=== PATIENT | female | born 1950 | race American Indian/Alaskan Native ===

== ENCOUNTER 2017-12-21 01:18 | Inpatient (IN) | payer MEDICARE ==
[2017-12-21] MEDS ORDERED: DUONEB *Not for PRN Use IH ONE ×2 (02:48→03:06)
[2017-12-21 03:53] LABS: Basophils % (Auto) 0.5 % (0.0-1.8); Eosinophils # (Auto) 0.4 K/mm3 (0.0-0.4); Eosinophils % (Auto) 4.8 % (0.0-4.3); Hematocrit 42.2 % (30.3-42.9); Hemoglobin 13.8 gm/dl (10.1-14.3); Lymphocytes % (Auto) 32.8 % (13.4-35.0); Mean Corpuscular HGB Conc 33 % (30-34); Mean Corpuscular Hemoglobin 31 pg (28-32); Mean Corpuscular Volume 94 fl (79-97); Monocytes # (Auto) 0.6 K/mm3 (0.0-0.8); Monocytes % (Auto) 6.1 % (0.0-7.3); Platelet Count 260 K/mm3 (140-440); Red Blood Count 4.51 M/mm3 (3.65-5.03); Red Cell Distribution Width 15.1 % (13.2-15.2)
--- NOTE | 2017-12-21 04:05 | XRay Report ---
FINAL REPORT EXAM: XR CHEST ROUTINE 2V HISTORY: Shortness of breath TECHNIQUE: PA and lateral chest radiographs PRIORS: None. FINDINGS: No mediastinal shift. Cardiac silhouette is not enlarged. Hyperaeration of the lungs. Mediastinal and pulmonary calcifications. No pneumothorax, effusion, or focal pulmonary opacity. No acute skeletal finding. Old left-sided rib fracture deformities. IMPRESSION: Suggested sequela of COPD and old granulomatous disease without superimposed focal airspace disease or effusion.
[2017-12-21 04:14] LABS: BUN/Creatinine Ratio 16; Blood Urea Nitrogen 11 mg/dL (7-17); Calcium 9.1 mg/dL (8.4-10.2); Hemolysis Index 37
[2017-12-21] MEDS ORDERED: PROVENTIL IH ONE (06:45)
[2017-12-21] MEDS ORDERED: DELTASONE PO ONE (06:45)
[2017-12-21] MEDS ORDERED: ATROVENT IH ONE (06:45)
--- NOTE | 2017-12-21 06:46 | Emergency Department Report ---
ED General Adult HPI - General Chief complaint: Dyspnea/Respdistress Stated complaint: SOB Time Seen by Provider: 12/21/17 06:39 Source: patient, EMS (ems notes not available at time of chart dictation), RN notes reviewed Mode of arrival: Stretcher Limitations: Physical Limitation - History of Present Illness Initial comments: This is a 67-year-old female who is not known to this provider previously. Has a past medical history of COPD, not home oxygen dependent, and her primary care doctor is with the [facility]. She presents to the ER with 1 week of cough , wheezing, mucus production, shortness of breath. She denies DVT, pulmonary embolus risk factors. Her symptoms are constant, they were sort of physical exertion, laying flat, and they decrease with rest. -: Gradual Severity scale (0 -10): 0 Consistency: constant Improves with: rest Worsens with: medication Associated Symptoms: cough, loss of appetite, malaise, shortness of breath, weakness. denies: confusion, chest pain, diaphoresis, fever/chills, headaches, nausea/vomiting, rash, seizure, syncope - Related Data Previous Rx's Medication Instructions Recorded Last Taken Type Cyclobenzaprine [Flexeril] 10 mg PO TID PRN #15 tablet 02/18/13 Unknown Rx HYDROcodone/APAP 5-325 [[place] 1 each PO Q6HR PRN #20 tablet 02/18/13 Unknown Rx 5/325 mg] HYDROcodone/APAP 5-325 [[place] 1 each PO Q6HR PRN #20 tablet 11/07/14 Unknown Rx 5/325] Methocarbamol [Robaxin] 750 mg PO Q8H PRN #21 tablet 11/07/14 Unknown Rx Allergies Allergy/AdvReac Type Severity Reaction Status Date / Time No Known Allergies Allergy Unverified 02/18/13 08:47 ED Review of Systems ROS: Stated complaint: SOB Other details as noted in HPI Comment: All other systems reviewed and negative ED Past Medical Hx - Past Medical History Hx CVA: No Hx Diabetes: Yes (pre diabetes) Hx COPD: Yes Additional medical history: Chronic neck pain - Surgical History Additional Surgical History: hysterectomy, Bautista. shoulder surgeries, Left hand surgery - Social History Smoking Status: Current Every Day Smoker Substance Use Type: None - Medications Home Medications: Home Medications Medication Instructions Recorded Confirmed Last Taken Type Cyclobenzaprine [Flexeril] 10 mg PO TID PRN #15 tablet 02/18/13 Unknown Rx HYDROcodone/APAP 5-325 [[place] 1 each PO Q6HR PRN #20 tablet 02/18/13 Unknown Rx 5/325 mg] HYDROcodone/APAP 5-325 [[place] 1 each PO Q6HR PRN #20 tablet 11/07/14 Unknown Rx 5/325] Methocarbamol [Robaxin] 750 mg PO Q8H PRN #21 tablet 11/07/14 Unknown Rx ED Physical Exam - General Limitations: Physical Limitation General appearance: alert, in no apparent distress - Head Head exam: Present: atraumatic, normocephalic - Eye Eye exam: Present: normal appearance. Absent: nystagmus - ENT ENT exam: Present: normal orophraynx, mucous membranes moist - Neck Neck exam: Present: normal inspection, full ROM - Respiratory Respiratory exam: Present: respiratory distress, wheezes, rhonchi - Cardiovascular Cardiovascular Exam: Present: regular rate, normal rhythm, normal heart sounds. Absent: bradycardia, tachycardia, irregular rhythm, systolic murmur, diastolic murmur, rubs, gallop - GI/Abdominal GI/Abdominal exam: Present: soft, normal bowel sounds. Absent: distended, tenderness, guarding, rebound, rigid, pulsatile mass - Extremities Exam Extremities exam: Present: normal inspection, full ROM, normal capillary refill , other (2+ pulses noted in the bilateral upper, lower extremities. Compartments soft. No long bony tenderness. The pelvis is stable.). Absent: pedal edema, joint swelling, calf tenderness - Back Exam Back exam: Present: normal inspection, full ROM. Absent: tenderness, CVA tenderness (R), CVA tenderness (L), paraspinal tenderness, vertebral tenderness - Neurological Exam Neurological exam: Present: alert, CN II-XII intact, other (Extraocular movements intact. Tongue midline. No facial droop. Facial sensation intact to light touch in the V1, V2, V3 distribution bilaterally. 5 and 5 strength in 4 extremities.. Sensation is intact to light touch in 4 extremities.). Absent : motor sensory deficit - Psychiatric Psychiatric exam: Present: anxious - Skin Skin exam: Present: warm, dry, intact, normal color. Absent: rash ED Course Vital Signs 12/21/17 12/21/17 12/21/17 01:18 02:58 06:26 Temperature 98.0 F Pulse Rate 92 H Respiratory 18 Rate Blood Pressure 115/64 Blood Pressure [Right] O2 Sat by Pulse 95 96 97 Oximetry 12/21/17 12/21/17 12/21/17 06:30 06:46 07:00 Temperature 98.4 F Pulse Rate 102 H 98 H 52 L Respiratory 29 H 21 22 Rate Blood Pressure 125/74 127/64 Blood Pressure 125/74 [Right] O2 Sat by Pulse 97 98 95 Oximetry ED Medical Decision Making - Lab Data Result diagrams: 12/21/17 03:17 12/21/17 03:17 Vital Signs 12/21/17 12/21/17 12/21/17 01:18 02:58 06:26 Temperature 98.0 F Pulse Rate 92 H Respiratory 18 Rate Blood Pressure 115/64 Blood Pressure [Right] O2 Sat by Pulse 95 96 97 Oximetry 12/21/17 12/21/17 12/21/17 06:30 06:46 07:00 Temperature 98.4 F Pulse Rate 102 H 98 H 52 L Respiratory 29 H 21 22 Rate Blood Pressure 125/74 127/64 Blood Pressure 125/74 [Right] O2 Sat by Pulse 97 98 95 Oximetry Lab Results 12/21/17 12/21/17 12/21/17 Range/Units 03:17 03:17 07:00 WBC 9.1 (4.5-11.0) K/mm3 RBC 4.51 (3.65-5.03) M/mm3 Hgb 13.8 (10.1-14.3) gm/dl Hct 42.2 (30.3-42.9) % MCV 94 (79-97) fl MCH 31 (28-32) pg MCHC 33 (30-34) % RDW 15.1 (13.2-15.2) % Plt Count 260 (140-440) K/mm3 Lymph % (Auto) 32.8 (13.4-35.0) % [place] % (Auto) 6.1 (0.0-7.3) % Eos % (Auto) 4.8 H (0.0-4.3) % Baso % (Auto) 0.5 (0.0-1.8) % Lymph # 3.0 (1.2-5.4) K/mm3 [place] # 0.6 (0.0-0.8) K/mm3 Eos # 0.4 (0.0-0.4) K/mm3 Baso # 0.0 (0.0-0.1) K/mm3 Seg Neutrophils % 55.8 (40.0-70.0) % Seg Neutrophils # 5.1 (1.8-7.7) K/mm3 Sodium 139 (137-145) mmol/L Potassium 4.2 (3.6-5.0) mmol/L Chloride 102.9 (98-107) mmol/L Carbon Dioxide 22 (22-30) mmol/L Anion Gap 18 mmol/L BUN 11 (7-17) mg/dL Creatinine 0.7 (0.7-1.2) mg/dL Estimated GFR > 60 ml/min BUN/Creatinine Ratio 16 % Glucose 97 (65-100) mg/dL Calcium 9.1 (8.4-10.2) mg/dL Troponin T < 0.010 < 0.010 (0.00-0.029) ng/mL - EKG Data When compared to previous EKG there are: no significant change 12/21/17 09:25 Motion artifact, 82 bpm, normal axis, QTC prolonged, abnormal EKG, not a STEMI. Appears unchanged from prior from 03/23/2009. - Radiology Data Radiology results: report reviewed, image reviewed X-ray of the chest shows chronic emphysematous changes. No acute disease is noted. - Medical Decision Making Differential diagnosis, including but not limited to: COPD, bronchitis, pneumonia Assessment and plan: 67-year-old female with no DVT or pulmonary embolus risk factors, with probable COPD exacerbation. She received multiple nebulizer therapy, but in spite of adequate and appropriate medical therapy, remained symptomatically, and desaturated with physical exertion. Contacted the [place] network and discussed the case with Dr. Florez, who authorized admission to this hospital for presumed COPD exacerbation. The case was then presented to the Hospital physician, Dr. Whipple, who accepted the patient to the medical service. Critical care attestation.: If time is entered above; I have spent that time in minutes in the direct care of this critically ill patient, excluding procedure time. ED Disposition Clinical Impression: COPD with exacerbation Disposition: OP ADMIT IP TO THIS HOSP Is pt being admited?: Yes Condition: Good Instructions: Chronic Obstructive Pulmonary Disease (ED) Referrals: JONATHAN METCALF MD [Other] - 3-5 Days
[2017-12-21] MEDS ORDERED: MAGNESIUM SULFATE 2GM/50ML 2 GM/50 ML BAG IV ONE (07:31)
[2017-12-21] MEDS ORDERED: MAGNESIUM SULFATE 2 GM in NACL 0.9% 50 ML IV ONE (08:00)
[2017-12-21] MEDS ORDERED: LEVAQUIN PO ONE (08:23)
[2017-12-21] MEDS ORDERED: PROVENTIL IH PRN (09:02)
[2017-12-21] MEDS ORDERED: ZOFRAN IV PRN (09:02)
[2017-12-21] MEDS ORDERED: TYLENOL PO PRN (09:02)
--- NOTE | 2017-12-21 09:09 | History and Physical Report ---
History of Present Illness Date of examination: 12/21/17 Chief complaint: Shortness of breath History of present illness: 67 year old female with past medical history significant for COPD, hyperlipidemia presented to the emergency department complaining of shortness of breath of one-week duration, but worsened yesterday and couldn't breath. Patient is also complaining cough which is productive of yellowish sputum for the last one and half week, associated with discharge from the right nostril. Patient denied fever, chills, palpitation. Patient took albuterol inhaler and nebulizer without improvement. Patient said she came to the hospital and was given antibiotics without improvement. Patient is active smoker. REVIEW OF SYSTEMS: GENERAL: no weight change, no fatigue, no fever HEAD: no head ache EYES: no blurry vision, no acute visual loss EARS: no hearing loss, no discharge, no earache NOSE: no stuffiness, no sneezing, no discharge MOUTH, THROAT AND NECK: no bleeding gums, no sore throat, no swollen neck CARDIAC: no palpitations, no dyspnea on exertion, no orthopnea, no PND, no edema , no chest pain RESPIRATORY: As stated in the HPI. GI: no decreased appetite, no nausea, no vomiting, no dysphagia, no diarrhea, no constipation, no abdominal pain URINARY: no change in frequency, no urgency, no polyuria, no hematuria, no incontinence MUSCULOSKELETAL: no muscle weakness, no pain, no joint stiffness NEUROLOGIC: no loss of sensation/numbness, no tingling, no tremors, no weakness/ paralysis HEMATOLOGIC: no anemia, no easy bruising SKIN: no rashes ENDOCRINE: no heat/cold intolerance, no polyuria, no polydipsia, no thyroid problems, no diabetes PSYCHIATRIC: no anxiety, no depression, no suicidal ideations Past History Past Medical History: COPD, hyperlipidemia Past Surgical History: No surgical history Social history: smoking (1/2 PPD), full code. denies: alcohol abuse, prescription drug abuse, IV drug use Family history: no significant family history Medications and Allergies Allergies Allergy/AdvReac Type Severity Reaction Status Date / Time No Known Allergies Allergy Unverified 02/18/13 08:47 Home Medications Medication Instructions Recorded Confirmed Last Taken Type Cyclobenzaprine [Flexeril] 10 mg PO TID PRN #15 tablet 02/18/13 12/21/17 Unknown Rx HYDROcodone/APAP 5-325 [[place] 1 each PO Q6HR PRN #20 tablet 02/18/13 12/21/17 Unknown Rx 5/325 mg] HYDROcodone/APAP 5-325 [[place] 1 each PO Q6HR PRN #20 tablet 11/07/14 12/21/17 Unknown Rx 5/325] Methocarbamol [Robaxin] 750 mg PO Q8H PRN #21 tablet 11/07/14 12/21/17 Unknown Rx Remeron 15 mg PO HS 12/21/17 12/21/17 12/19/17 21:00 History Exam - Physical Exam Narrative exam: patient is in cardiopulmonary distress. Use of accessory muscles for breathing. The patient appeared well nourished and normally developed. Vital signs as documented. Head exam is unremarkable. No scleral icterus . Neck is without jugular venous distension, thyromegaly, or carotid bruits. Lungs wheezing all over the chest. Cardiac exam reveals regular rate and Rhythm. First and second heart sounds normal. No murmurs, rubs or gallops. Abdominal exam reveals normal bowel sounds, no masses, no organomegaly and no aortic enlargement. Extremities are nonedematous and both femoral and pedal pulses are normal. 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 No focal weakness. - Constitutional Vitals: Temp Pulse Resp BP Pulse Ox 98.4 F 52 L 22 127/64 95 12/21/17 06:30 12/21/17 07:00 12/21/17 07:00 12/21/17 07:00 12/21/17 07:00 Results - Labs CBC & Chem 7: 12/21/17 03:17 12/21/17 03:17 Labs: Laboratory Last Values WBC 9.1 K/mm3 (4.5-11.0) 12/21/17 03:17 RBC 4.51 M/mm3 (3.65-5.03) 12/21/17 03:17 Hgb 13.8 gm/dl (10.1-14.3) 12/21/17 03:17 Hct 42.2 % (30.3-42.9) 12/21/17 03:17 MCV 94 fl (79-97) 12/21/17 03:17 MCH 31 pg (28-32) 12/21/17 03:17 MCHC 33 % (30-34) 12/21/17 03:17 RDW 15.1 % (13.2-15.2) 12/21/17 03:17 Plt Count 260 K/mm3 (140-440) 12/21/17 03:17 Lymph % (Auto) 32.8 % (13.4-35.0) 12/21/17 03:17 [place] % (Auto) 6.1 % (0.0-7.3) 12/21/17 03:17 Eos % (Auto) 4.8 % (0.0-4.3) H 12/21/17 03:17 Baso % (Auto) 0.5 % (0.0-1.8) 12/21/17 03:17 Lymph # 3.0 K/mm3 (1.2-5.4) 12/21/17 03:17 [place] # 0.6 K/mm3 (0.0-0.8) 12/21/17 03:17 Eos # 0.4 K/mm3 (0.0-0.4) 12/21/17 03:17 Baso # 0.0 K/mm3 (0.0-0.1) 12/21/17 03:17 Seg Neutrophils % 55.8 % (40.0-70.0) 12/21/17 03:17 Seg Neutrophils # 5.1 K/mm3 (1.8-7.7) 12/21/17 03:17 Sodium 139 mmol/L (137-145) 12/21/17 03:17 Potassium 4.2 mmol/L (3.6-5.0) 12/21/17 03:17 Chloride 102.9 mmol/L (98-107) 12/21/17 03:17 Carbon Dioxide 22 mmol/L (22-30) 12/21/17 03:17 Anion Gap 18 mmol/L 12/21/17 03:17 BUN 11 mg/dL (7-17) 12/21/17 03:17 Creatinine 0.7 mg/dL (0.7-1.2) 12/21/17 03:17 Estimated GFR > 60 ml/min 12/21/17 03:17 BUN/Creatinine Ratio 16 % 12/21/17 03:17 Glucose 97 mg/dL (65-100) 12/21/17 03:17 Calcium 9.1 mg/dL (8.4-10.2) 12/21/17 03:17 Troponin T < 0.010 ng/mL (0.00-0.029) 12/21/17 07:00 - Imaging and Cardiology Chest x-ray: report reviewed Assessment and Plan Assessment and plan: Acute hypoxic respiratory failure - There is no documentation of hypoxia in the chart, but patient was saturating 91 while on 3 liters of oxygen - Patient was using her accessory medicines for breathing COPD exacerbation - Oxygen support, Solu-Medrol, IV antibiotic, nebulizer, breathing treatment Hyperlipidemia - We'll check lipid panel and treat accordingly Tobacco dependence - Patient was counseled about cessation of tobacco use DVT prophylaxis - Heparin Disposition - Admit to [facility] floor Advance Directives: Yes VTE prophylaxis?: Chemical Plan of care discussed with patient/family: Yes
[2017-12-21] MEDS: GUAIFENESIN DM SYRUP PO SCH ×4 (09:39→21:04)
[2017-12-21] MEDS ORDERED: LEVAQUIN PO SCH (11:00)
[2017-12-21] MEDS ORDERED: HABITROL TD ONE (11:00)
[2017-12-21] MEDS: PEPCID PO SCH ×2 (11:41→22:18)
[2017-12-21] MEDS: SODIUM CHLORIDE FLUSH SYRINGE 10 ML IV SCH ×2 (11:41→22:19)
[2017-12-21] MEDS: COLACE PO SCH ×2 (11:41→22:18)
[2017-12-21] MEDS ORDERED: LEVAQUIN PO NR (12:00)
[2017-12-21] MEDS: HEPARIN SUB-Q SCH ×2 (14:03→22:18)
[2017-12-21] MEDS: SODIUM CHLORIDE FLUSH SYRINGE 10 ML IV PRN (14:03)
[2017-12-21] MEDS ORDERED: PERCOCET 5/325 PO PRN (14:49)
[2017-12-21] MEDS: DUONEB *Not for PRN Use IH SCH ×3 (15:32→19:06)
[2017-12-21] MEDS: PULMICORT IH SCH ×2 (15:32→19:06)
[2017-12-22] MEDS: GUAIFENESIN DM SYRUP PO SCH ×6 (01:05→21:45)
[2017-12-22 05:40] LABS: Basophils % (Auto) 0.1 % (0.0-1.8); Hematocrit 40.4 % (30.3-42.9); Hemoglobin 13.2 gm/dl (10.1-14.3); Lymphocytes # (Auto) 1.5 K/mm3 (1.2-5.4); Lymphocytes % (Auto) 10.4 % (13.4-35.0); Mean Corpuscular HGB Conc 33 % (30-34); Mean Corpuscular Hemoglobin 30 pg (28-32); Mean Corpuscular Volume 91 fl (79-97); Monocytes # (Auto) 0.4 K/mm3 (0.0-0.8); Monocytes % (Auto) 2.6 % (0.0-7.3); Platelet Count 277 K/mm3 (140-440); Red Blood Count 4.42 M/mm3 (3.65-5.03); Red Cell Distribution Width 14.7 % (13.2-15.2)
[2017-12-22 05:57] LABS: BUN/Creatinine Ratio 15; Blood Urea Nitrogen 9 mg/dL (7-17); Hemolysis Index 7
[2017-12-22] MEDS: HEPARIN SUB-Q SCH ×3 (06:04→22:07)
[2017-12-22] MEDS: DUONEB *Not for PRN Use IH SCH ×4 (06:56→20:00)
[2017-12-22] MEDS: PULMICORT IH SCH ×2 (09:45→20:00)
[2017-12-22] MEDS ORDERED: XANAX PO ONE (10:17)
[2017-12-22] MEDS: PEPCID PO SCH ×2 (10:23→22:07)
[2017-12-22] MEDS: COLACE PO SCH ×2 (10:24→22:07)
[2017-12-22] MEDS: SODIUM CHLORIDE FLUSH SYRINGE 10 ML IV SCH ×2 (10:24→22:27)
--- NOTE | 2017-12-22 12:39 | Progress Note ---
Assessment and Plan Assessment and plan: Acute hypoxic respiratory failure - There is no documentation of hypoxia in the chart, but patient was saturating 91 while on 3 liters of oxygen at presentation - Patient was using her accessory medicines for breathing - Now resolving COPD exacerbation - Oxygen support, Solu-Medrol, IV antibiotic, nebulizer, breathing treatment Hyperlipidemia - We'll check lipid panel and treat accordingly Tobacco dependence - Patient was counseled about cessation of tobacco use DVT prophylaxis - Heparin [facility] History Interval history: Patient was seen and evaluated this morning, patient is breathing better. Hospitalist Physical - Physical exam Narrative exam: patient is not in cardiopulmonary distress. The patient appeared well nourished and normally developed. Vital signs as documented. Head exam is unremarkable. No scleral icterus . Neck is without jugular venous distension, thyromegaly, or carotid bruits. Lungs scattered wheezing. Cardiac exam reveals regular rate and Rhythm. First and second heart sounds normal. No murmurs, rubs or gallops. Abdominal exam reveals normal bowel sounds, no masses, no organomegaly and no aortic enlargement. Extremities are nonedematous and both femoral and pedal pulses are normal. 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 No focal weakness. - Constitutional Vitals: Temp Pulse Resp BP Pulse Ox 98.9 F 83 18 127/43 96 12/22/17 07:39 12/22/17 10:04 12/22/17 10:04 12/22/17 07:39 12/22/17 09:43 Results - Labs CBC & Chem 7: 12/22/17 05:00 12/22/17 05:00 Labs: Laboratory Last Values WBC 14.9 K/mm3 (4.5-11.0) H 12/22/17 05:00 RBC 4.42 M/mm3 (3.65-5.03) 12/22/17 05:00 Hgb 13.2 gm/dl (10.1-14.3) 12/22/17 05:00 Hct 40.4 % (30.3-42.9) 12/22/17 05:00 MCV 91 fl (79-97) 12/22/17 05:00 MCH 30 pg (28-32) 12/22/17 05:00 MCHC 33 % (30-34) 12/22/17 05:00 RDW 14.7 % (13.2-15.2) 12/22/17 05:00 Plt Count 277 K/mm3 (140-440) 12/22/17 05:00 Lymph % (Auto) 10.4 % (13.4-35.0) L 12/22/17 05:00 [place] % (Auto) 2.6 % (0.0-7.3) 12/22/17 05:00 Eos % (Auto) 0.0 % (0.0-4.3) 12/22/17 05:00 Baso % (Auto) 0.1 % (0.0-1.8) 12/22/17 05:00 Lymph # 1.5 K/mm3 (1.2-5.4) 12/22/17 05:00 [place] # 0.4 K/mm3 (0.0-0.8) 12/22/17 05:00 Eos # 0.0 K/mm3 (0.0-0.4) 12/22/17 05:00 Baso # 0.0 K/mm3 (0.0-0.1) 12/22/17 05:00 Seg Neutrophils % 86.9 % (40.0-70.0) H 12/22/17 05:00 Seg Neutrophils # 12.9 K/mm3 (1.8-7.7) H 12/22/17 05:00 Sodium 140 mmol/L (137-145) 12/22/17 05:00 Potassium 4.7 mmol/L (3.6-5.0) 12/22/17 05:00 Chloride 104.6 mmol/L (98-107) 12/22/17 05:00 Carbon Dioxide 23 mmol/L (22-30) 12/22/17 05:00 Anion Gap 17 mmol/L 12/22/17 05:00 BUN 9 mg/dL (7-17) 12/22/17 05:00 Creatinine 0.6 mg/dL (0.7-1.2) L 12/22/17 05:00 Estimated GFR > 60 ml/min 12/22/17 05:00 BUN/Creatinine Ratio 15 % 12/22/17 05:00 Glucose 137 mg/dL (65-100) H 12/22/17 05:00 Calcium 9.0 mg/dL (8.4-10.2) 12/22/17 05:00 Troponin T < 0.010 ng/mL (0.00-0.029) 12/21/17 07:00
[2017-12-22 14:21] LABS: Chol/HDL Ratio 3.35 %
[2017-12-22] MEDS ORDERED: XANAX PO PRN (16:24)
[2017-12-22] MEDS: HABITROL TD SCH (16:37)
[2017-12-23] MEDS: GUAIFENESIN DM SYRUP PO SCH ×5 (01:52→13:13)
[2017-12-23] MEDS: DUONEB *Not for PRN Use IH SCH ×2 (02:10→12:10)
[2017-12-23] MEDS: HEPARIN SUB-Q SCH ×2 (06:33→13:14)
[2017-12-23 08:18] VITALS: BP 106/38
[2017-12-23] MEDS: SODIUM CHLORIDE FLUSH SYRINGE 10 ML IV PRN ×2 (08:27→13:19)
[2017-12-23] MEDS: COLACE PO SCH (09:12)
[2017-12-23] MEDS: HABITROL TD SCH (09:12)
[2017-12-23] MEDS: PEPCID PO SCH (09:12)
[2017-12-23] MEDS: SODIUM CHLORIDE FLUSH SYRINGE 10 ML IV SCH (09:13)
[2017-12-23] MEDS ORDERED: LEVAQUIN PO SCH (10:00)
--- NOTE | 2017-12-23 11:55 | Discharge Summary ---
Providers - Providers Date of Admission: 12/21/17 09:02 Attending physician: MICHELE RETANA MD Hospitalization Reason for admission: COPD exacerbation Condition: Good Disposition: DC-01 TO HOME OR SELFCARE Time spent for discharge: 32 minutes - Discharge Diagnoses (1) Anxiety Status: Chronic (2) COPD with exacerbation Status: Acute (3) Arthritis, shoulder region Status: Acute (4) Nicotine dependence Status: Chronic Core Measure Documentation - Palliative Care Palliative Care/ Comfort Measures: Not Applicable - Core Measures Any of the following diagnoses?: none Exam - Physical Exam Narrative exam: patient is not in cardiopulmonary distress. The patient appeared well nourished and normally developed. Vital signs as documented. Head exam is unremarkable. No scleral icterus . Neck is without jugular venous distension, thyromegaly, or carotid bruits. Lungs CTAB. Cardiac exam reveals regular rate and Rhythm. First and second heart sounds normal. No murmurs, rubs or gallops. Abdominal exam reveals normal bowel sounds, no masses, no organomegaly and no aortic enlargement. Extremities are nonedematous and both femoral and pedal pulses are normal. 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 No focal weakness. - Constitutional Vitals: Temp Pulse Resp BP Pulse Ox 99.8 F H 102 H 18 106/38 96 12/23/17 08:00 12/23/17 10:00 12/23/17 02:18 12/23/17 07:20 12/23/17 10:00 Plan Activity: no restrictions Weight Bearing Status: Full Weight Bearing Diet: regular Special Instructions: smoking cessation Follow up with: JONATHAN METCALF MD [Other] - 3-5 Days Prescriptions: AtorvaSTATin [Lipitor] 40 mg PO QHS #30 tablet guaiFENesin DM [Guaifenesin Dm Syrup] 10 ml PO Q4H #1 bottle Ipratropium/Albuterol Sulfate [DUONEB *Not for PRN Use*] 1 ampul IH Q6HRT #60 ampul.neb Levofloxacin [Levaquin TAB] 500 mg PO Q24H #5 tablet Nebulizer [Aeroneb Go Nebulizer] 1 each MC BID #1 each Nicotine [Habitrol] 21 mg TD QDAY #7 patch Prednisone [predniSONE 10 mg (6-Day Pack, 21 Tabs)] 10 mg PO .TAPER #1 tab.ds.pk
[2017-12-23] MEDS: PULMICORT IH SCH (12:10)
== END 2017-12-23 13:37 | disposition home or self-care (01) | DRG 189 ==
LOC: ED 01:18 → 2B-ACE 09:02
PROVIDERS: ADMIT Internal Medicine; ATTEND Internal Medicine
DX: J96.01 Acute respiratory failure with hypoxia (principal); J44.1 Chronic obstructive pulmonary disease with (acute) exacerbation; E11.9 Type 2 diabetes mellitus without complications; G89.29 Other chronic pain; M54.2 Cervicalgia; Z90.710 Acquired absence of both cervix and uterus; F17.200 Nicotine dependence, unspecified, uncomplicated; E78.5 Hyperlipidemia, unspecified; F41.9 Anxiety disorder, unspecified; M19.019 Primary osteoarthritis, unspecified shoulder
CPT/HCPCS: 36415; 71046; 80048; 80061; 84484; 85025; 93005; 93010; 94640; 94760; J1644; J2930; J3475; J7512

== ENCOUNTER 2019-06-04 14:09 | Emergency (ER) | payer MEDICARE ==
[2019-06-04] MEDS ORDERED: methylPREDNISolone Sod Succinate 125 MG/2 ML INJ IV ONE (14:23)
[2019-06-04] MEDS ORDERED: MAGNESIUM SULFATE 1 GM in SODIUM CHLORIDE 0.9% 50 ML IV ONE (14:30)
[2019-06-04] MEDS ORDERED: ALBUTEROL 2.5 MG/3 ML NEBU IH ONE ×3 (14:40→17:09)
[2019-06-04] MEDS ORDERED: IPRATROPIUM 0.02% NEBU 2.5 ML IH ONE ×2 (14:41→17:09)
--- NOTE | 2019-06-04 14:52 | Emergency Department Report ---
HPI - General Chief Complaint: Dyspnea/Respdistress Time Seen by Provider: 06/04/19 14:23 - HPI HPI: 68-year-old -[place] female presents to the emergency department via EMS from home with complaint of a 2 day history of shortness of breath, coughing, wheezing. She has a history of COPD but is not oxygen dependent at home. She has used her breathing treatments at home without much relief. She went to [place] yesterday for the same symptoms and was discharged home with azithromycin and prednisone, which she has also been taking compliantly. The patient is a tobacco smoker but denies any illicit drug use. She denies any chest pain, lower extremity swelling, fever. No recent travel or sick contacts at home. She received 5 mg of albuterol in route with EMS. ED Past Medical Hx - Past Medical History Previous Medical History?: Yes Hx CVA: No Hx Diabetes: Yes (pre diabetes) Hx COPD: Yes Additional medical history: Chronic neck pain - Surgical History Past Surgical History?: Yes Additional Surgical History: hysterectomy, Bautista. shoulder surgeries, Left hand surgery - Social History Smoking Status: Current Every Day Smoker - Medications Home Medications: Home Medications Medication Instructions Recorded Confirmed Last Taken Type Remeron 15 mg PO HS 12/21/17 05/24/18 12/19/17 21:00 History AtorvaSTATin [Lipitor] 40 mg PO QHS #30 tablet 12/23/17 05/24/18 Unknown Rx Ipratropium/Albuterol Sulfate 1 ampul IH Q6HRT #60 ampul.neb 12/23/17 05/24/18 Unknown Rx [DUONEB *Not for PRN Use*] Nebulizer [Aeroneb Go Nebulizer] 1 each BID #1 each 12/23/17 05/24/18 Unknown Rx ED Review of Systems ROS: Stated complaint: GE[place] Other details as noted in HPI Comment: All other systems reviewed and negative Constitutional: denies: chills, fever Eyes: denies: eye pain, vision change ENT: denies: ear pain, throat pain Respiratory: cough, shortness of breath, wheezing Cardiovascular: denies: chest pain, edema Gastrointestinal: denies: abdominal pain, vomiting Genitourinary: denies: dysuria, discharge Musculoskeletal: denies: back pain, arthralgia Skin: denies: rash, lesions Neurological: denies: headache, weakness Physical Exam - Physical Exam Vital Signs: Vital Signs 06/04/19 14:09 Temperature 98.2 F Pulse Rate 119 H Respiratory 20 Rate Blood Pressure 129/75 [Left] O2 Sat by Pulse 100 Oximetry Physical Exam: GENERAL: The patient is well-developed well-nourished. HEENT: Normocephalic. Atraumatic. Patient has moist mucous membranes. EYES: Extraocular motions are intact. NECK: Supple. Trachea is midline. CHEST/LUNGS: Mild wheezing throughout the chest. There is tachypnea but no accessory muscle use. There is no respiratory distress noted. HEART/CARDIOVASCULAR: Regular. There is no tachycardia. There is no murmur. ABDOMEN: Abdomen is soft, nontender. Patient has normal bowel sounds. There is no abdominal distention. SKIN:Skin is warm and dry. . NEURO: The patient is awake, alert, and oriented. The patient is cooperative. The patient has no focal neurologic deficits. Normal speech. MUSCULOSKELETAL: There is no tenderness or deformity. There is no evidence of acute injury. ED Course Vital Signs 06/04/19 14:09 Temperature 98.2 F Pulse Rate 119 H Respiratory 20 Rate Blood Pressure 129/75 [Left] O2 Sat by Pulse 100 Oximetry - ABG Interpretation Ph: [phone] PCO2: 41 PO2: 59 Bicarbonate: 23 Interpretation: other (hypoxemia) ED Medical Decision Making - Lab Data Result diagrams: 06/04/19 14:51 06/04/19 14:51 - EKG Data -: EKG Interpreted by Me EKG shows normal: sinus rhythm, axis (left axis deviation), intervals, QRS complexes (left anterior fascicular block), ST-T waves Rate: normal - EKG Data When compared to previous EKG there are: previous EKG unavailable Interpretation: other (left anterior fascicular block) - Radiology Data Radiology results: image reviewed interpreted by me: Chest x-ray does not show any pleural effusions, pneumonia, pneumothorax, focal consolidation, or any other acute process. - Medical Decision Making This patient presents with a 2 day history of shortness of breath, wheezing with a history of COPD. She was seen at a [place] facility yesterday and has been taking the antibiotics and home treatments compliantly without much relief. EKG today did not show any signs of ST elevation NC. Chest x-ray did not show any pneumonia, significant pleural effusions, pneumothorax, or any other acute process. Patient's labs show a mild leukocytosis and the ABG shows some hypoxemia. The patient was given breathing treatments, Solu-Medrol, magnesium. Patient does well with supplemental oxygen but she has not home O2 dependent. When I took the oxygen off of her the patient began having worsening tachypnea and some increased work of breathing and this was before we tested her ambulated. Therefore I felt the patient needed admission. She is a [place] patient and I spoke with Dr. ozuna and the patient was accepted to [facility] under Dr. Moffett. - Differential Diagnosis COPD, CHF, pneumonia, PE Critical Care Time: No Critical care attestation.: If time is entered above; I have spent that time in minutes in the direct care of this critically ill patient, excluding procedure time. ED Disposition Clinical Impression: COPD with exacerbation, Dyspnea Disposition: DC/TX-70 ANOTHER TYPE HLTHCARE Is pt being admited?: No Condition: Stable Instructions: Chronic Obstructive Pulmonary Disease (ED) Time of Disposition: 21:30
[2019-06-04 15:08] LABS: Hematocrit 43.4 % (30.3-42.9); Mean Corpuscular HGB Conc 32 % (30-34); Mean Corpuscular Volume 93 fl (79-97); Platelet Count 270 K/mm3 (140-440); Red Blood Count 4.66 M/mm3 (3.65-5.03); Red Cell Distribution Width 15.7 % (13.2-15.2)
--- NOTE | 2019-06-04 15:08 | XRay Report ---
CHEST 1 VIEW INDICATION / CLINICAL INFORMATION: SOB. COMPARISON: 05/24/2018 FINDINGS: SUPPORT DEVICES: None. HEART / MEDIASTINUM: No significant abnormality. LUNGS / PLEURA: The lungs are hyperinflated. There is mild chronic interstitial lung disease which ap pears unchanged from prior exam. I do not see evidence for superimposed acute pulmonary or pleural pr ocess. No pneumothorax. ADDITIONAL FINDINGS: No significant additional findings. IMPRESSION: 1. COPD. No interval change from prior exam. Signer Name: Noemy Price MD Signed: 06/04/2019 3:03 PM Workstation Name: [id number]
[2019-06-04 15:56] LABS: BUN/Creatinine Ratio 10; Basophils % (Manual) 0 % (0.0-1.8); Blood Urea Nitrogen 7 mg/dL (7-17); Calcium 9.4 mg/dL (8.4-10.2); Hemolysis Index 32; Total Cells Counted 100
[2019-06-04 15:57] LABS: Platelet Estimate Consistent w Auto; RBC Morphology Normal
[2019-06-04] MEDS ORDERED: IPRATROPIUM/ALBUTEROL SULFATE 3 ML AMPUL.NEB IH ONE ×2 (18:06→20:17)
[2019-06-04 20:38] VITALS: BP 123/52
== END 2019-06-04 20:50 | disposition other institution (70) ==
LOC: ED 14:09
DX: J44.1 Chronic obstructive pulmonary disease with (acute) exacerbation (principal); E11.9 Type 2 diabetes mellitus without complications; F17.200 Nicotine dependence, unspecified, uncomplicated; Z98.890 Other specified postprocedural states; Z98.51 Tubal ligation status
CPT/HCPCS: 36415; 71045; 80048; 82803; 83880; 84484; 85007; 85025; 85379; 93005; 93010; 94640; 96365; 96375; 99285; J2930; J3475; 94644

== ENCOUNTER 2019-06-10 07:32 | Emergency (ER) | payer MEDICARE ==
[2019-06-10] MEDS ORDERED: IPRATROPIUM 0.02% NEBU 2.5 ML IH ONE ×2 (07:54→07:59)
[2019-06-10] MEDS ORDERED: ALBUTEROL 2.5 MG/3 ML NEBU IH ONE ×2 (07:54→07:59)
--- NOTE | 2019-06-10 07:55 | Emergency Department Report ---
ED Shortness of Breath HPI - General Stated Complaint: [place] Time Seen by Provider: 06/10/19 07:50 Source: patient, EMS - History of Present Illness Initial Comments: 68-year-old female with history of COPD presents to ED with shortness of breath. Patient states she awoke from sleep with difficulty breathing. Patient states she was released from [facility] yesterday, following a 5 day admission for COPD exacerbation. She was discharged with prednisone, Tessalon Perles, and an oxygen tank. Patient reports her oxygen tank ran out of oxygen was morning. Patient states she has been on and off oxygen. States when she is admitted to the hospital she will be discharged w/ oxygen, but whenever she follows up with her painter helper sign, they take her off. EMS was called, patient was given albuterol 10 mg, mag sulfate 2 g, Solu-Medrol 125 mg and transported to the ED. Patient reports continued tobacco use. MD Complaint: shortness of breath -: This morning Severity: moderate Consistency: constant Improves With: oxygen, bronchodilators Known History Of: COPD Associated Symptoms: cough Treatments Prior to Arrival: oxygen, bronchodilator - Related Data Home Oxygen Therapy: Yes Home Oxygen Amount: 2 Liters Home Medications Medication Instructions Recorded Confirmed Last Taken Remeron 15 mg PO HS 12/21/17 05/24/18 12/19/17 21:00 Previous Rx's Medication Instructions Recorded Last Taken Type AtorvaSTATin [Lipitor] 40 mg PO QHS #30 tablet 12/23/17 Unknown Rx Ipratropium/Albuterol Sulfate 1 ampul IH Q6HRT #60 ampul.neb 12/23/17 Unknown Rx [DUONEB *Not for PRN Use*] Nebulizer [Aeroneb Go Nebulizer] 1 each MC BID #1 each 12/23/17 Unknown Rx Allergies Allergy/AdvReac Type Severity Reaction Status Date / Time No Known Allergies Allergy Verified 06/04/19 14:15 ED Review of Systems ROS: Stated complaint: GE[place] Other details as noted in HPI Comment: All other systems reviewed and negative Constitutional: denies: chills, fever Respiratory: cough, shortness of breath, wheezing Cardiovascular: denies: chest pain ED Past Medical Hx - Past Medical History Hx CVA: No Hx Diabetes: Yes (pre diabetes) Hx COPD: Yes Additional medical history: Chronic neck pain - Surgical History Additional Surgical History: hysterectomy, Bautista. shoulder surgeries, Left hand surgery - Social History Smoking Status: Current Every Day Smoker - Medications Home Medications: Home Medications Medication Instructions Recorded Confirmed Last Taken Type Remeron 15 mg PO HS 12/21/17 05/24/18 12/19/17 21:00 History AtorvaSTATin [Lipitor] 40 mg PO QHS #30 tablet 12/23/17 05/24/18 Unknown Rx Ipratropium/Albuterol Sulfate 1 ampul IH Q6HRT #60 ampul.neb 12/23/17 05/24/18 Unknown Rx [DUONEB *Not for PRN Use*] Nebulizer [Aeroneb Go Nebulizer] 1 each MC BID #1 each 12/23/17 05/24/18 Unknown Rx ED Physical Exam - General General appearance: alert - Head Head exam: Present: atraumatic, normocephalic - Eye Eye exam: Present: normal appearance - ENT ENT exam: Present: mucous membranes moist - Neck Neck exam: Present: normal inspection - Respiratory Respiratory exam: Present: respiratory distress, wheezes (scattered), decreased breath sounds - Cardiovascular Cardiovascular Exam: Present: regular rate, normal rhythm - GI/Abdominal GI/Abdominal exam: Present: soft. Absent: distended, tenderness - Extremities Exam Extremities exam: Present: normal inspection - Neurological Exam Neurological exam: Present: alert, oriented X3 - Psychiatric Psychiatric exam: Present: normal affect, normal mood - Skin Skin exam: Present: warm, dry, intact, normal color ED Course Vital Signs 06/10/19 06/10/19 06/10/19 07:46 07:57 08:00 Pulse Rate 100 H 98 H Pulse Rate [ 98 H Anterior Bilateral Throughout] Respiratory 20 28 H 27 H Rate Respiratory 24 Rate [Anterior Bilateral Throughout] Blood Pressure 133/76 127/73 O2 Sat by Pulse 98 96 Oximetry 06/10/19 06/10/19 06/10/19 08:15 08:30 09:07 Pulse Rate 106 H 102 H Pulse Rate [ Anterior Bilateral Throughout] Respiratory 24 26 H 11 L Rate Respiratory Rate [Anterior Bilateral Throughout] Blood Pressure 119/82 123/69 123/69 O2 Sat by Pulse 95 98 Oximetry 06/10/19 06/10/19 06/10/19 09:13 09:15 09:30 Pulse Rate 102 H 101 H Pulse Rate [ Anterior Bilateral Throughout] Respiratory 20 24 23 Rate Respiratory Rate [Anterior Bilateral Throughout] Blood Pressure 117/63 113/58 O2 Sat by Pulse 97 95 98 Oximetry 06/10/19 06/10/19 06/10/19 09:45 10:00 10:15 Pulse Rate 93 H 99 H 101 H Pulse Rate [ Anterior Bilateral Throughout] Respiratory 18 22 16 Rate Respiratory Rate [Anterior Bilateral Throughout] Blood Pressure 117/66 101/59 117/58 O2 Sat by Pulse 96 94 93 Oximetry 06/10/19 06/10/19 06/10/19 10:30 10:45 11:00 Pulse Rate 106 H 103 H 98 H Pulse Rate [ Anterior Bilateral Throughout] Respiratory 21 26 H 31 H Rate Respiratory Rate [Anterior Bilateral Throughout] Blood Pressure 121/56 121/56 105/48 O2 Sat by Pulse 93 94 92 Oximetry 06/10/19 06/10/19 11:15 11:21 Pulse Rate 97 H Pulse Rate [ Anterior Bilateral Throughout] Respiratory 31 H 18 Rate Respiratory Rate [Anterior Bilateral Throughout] Blood Pressure 121/56 O2 Sat by Pulse 93 94 Oximetry - Reevaluation(s) Reevaluation #1: 06/10/19 09:04 Pt feeling much better. Breath sounds improved. ED Medical Decision Making - Lab Data Result diagrams: 06/10/19 08:04 06/10/19 08:04 - Radiology Data Radiology results: report reviewed, image reviewed - Medical Decision Making - COPD exacerbation improved w/ mag, solumedrol, albyterol/atrovent nebs - CXR normal; WBCs elevated, possibly due to recent steroid use, she is afebrile - pt feeling much better at this time, able to talk on phone w/o difficulty - pt informed that she may have missed oxygen delivery this morning; pt will be discharged home, case management social worker spoke w/ home health service to coordinate delivery of O2 tank when pt arrives home - outpt f/u advised - return precautions given - Differential Diagnosis COPD, pneumonia, pulm edema Critical care attestation.: If time is entered above; I have spent that time in minutes in the direct care of this critically ill patient, excluding procedure time. ED Disposition Clinical Impression: Acute exacerbation of chronic obstructive pulmonary disease (COPD) Disposition: -01 TO HOME OR SELFCARE Is pt being admited?: No Does the pt Need Aspirin: No Condition: Stable Instructions: Chronic Obstructive Pulmonary Disease (ED) Referrals: PRIMARY CARE, [Referring] - 3-5 Days Time of Disposition: 10:47
[2019-06-10 08:15] LABS: Hematocrit 40.8 % (30.3-42.9); Hemoglobin 13.1 gm/dl (10.1-14.3); Mean Corpuscular HGB Conc 32 % (30-34); Mean Corpuscular Volume 93 fl (79-97); Platelet Count 263 K/mm3 (140-440); Red Blood Count 4.41 M/mm3 (3.65-5.03); Red Cell Distribution Width 15.8 % (13.2-15.2)
[2019-06-10 08:47] LABS: BUN/Creatinine Ratio 16; Blood Urea Nitrogen 11 mg/dL (7-17); Calcium 8.4 mg/dL (8.4-10.2); Hemolysis Index 8
--- NOTE | 2019-06-10 08:55 | XRay Report ---
CHEST 1 VIEW INDICATION: sob. COMPARISON: 06/04/2019 FINDINGS: Support devices: None. Heart: Normal. Lungs/Pleura: No acute pulmonary or pleural findings. Mild chronic interstitial markings are stable. IMPRESSION: 1. No acute findings. Signer Name: Chun Camilo MD Signed: 06/10/2019 8:51 AM Workstation Name: [id number]
[2019-06-10 10:41] LABS: Anisocytosis 1+; Band Neutrophils # (Manual) 0.2 K/mm3; Basophils % (Manual) 0 % (0.0-1.8); Eosinophils % (Manual) 0 % (0.0-4.3); Target Cells Few; Total Cells Counted 100
[2019-06-10 10:42] LABS: Platelet Estimate Consistent w Auto
[2019-06-10 11:22] VITALS: BP 121/56
== END 2019-06-10 11:25 | disposition home or self-care (01) ==
LOC: ED 07:32
DX: J44.1 Chronic obstructive pulmonary disease with (acute) exacerbation (principal); E11.9 Type 2 diabetes mellitus without complications; F17.200 Nicotine dependence, unspecified, uncomplicated
CPT/HCPCS: 36415; 71045; 80048; 85007; 85025; 94640; 94644; 99284

== ENCOUNTER 2019-10-02 20:53 | Emergency (ER) | payer MEDICARE ==
[2019-10-02] MEDS ORDERED: FAMOTIDINE 20 MG/2 ML INJ IV ONE (21:27)
[2019-10-02] MEDS ORDERED: ALBUTEROL 2.5 MG/3 ML NEBU IH ONE (21:27)
[2019-10-02] MEDS ORDERED: KETOROLAC 30 MG/1 ML INJ IV ONE (21:27)
--- NOTE | 2019-10-02 21:33 | Emergency Department Report ---
ED Shortness of Breath HPI - General Chief Complaint: Dyspnea/Respdistress Stated Complaint: DIFFICULTY IN BREATHING Time Seen by Provider: 10/02/19 21:08 Source: patient, EMS Mode of arrival: Stretcher Limitations: No Limitations - History of Present Illness Initial Comments: 69-year-old female the past medical history COPD not on home oxygen, pulmonary embolism in the past not currently on anticoagulation, current smoker, prediabetes, and chronic neck pain presents to the hospital complains of waking up with shortness of breath this morning. Patient has been having intermittent wheezing and shortness of breath throughout the day. The fire department, earlier today gave her breathing treatments with improvement in symptoms and therefore patient elected not to come to the ED at that time. Patient has been continue home nebulized treatments but is still having increased wheezing, shortness of breath, dyspnea on exertion. Patient reports a nonproductive cough without fever. She uses 3 L nasal cannula oxygen at home but increase it when she is short of breath e EMS this evening provided Solu-Medrol 125 mg, mag 2 g, and bronchodilators in route to the hospital. Patient does report some improvement. She denies history of previous intubations. Patient also complains of ongoing left sided neck and shoulder pain that has been worse x1 week. Pain is constant, worse with movement and palpation. She has been prescribed ibuprofen 800 mg for this pain has not taken any today. - Related Data Home Medications Medication Instructions Recorded Confirmed Last Taken Remeron 15 mg PO HS 12/21/17 05/24/18 12/19/17 21:00 Previous Rx's Medication Instructions Recorded Last Taken Type AtorvaSTATin [Lipitor] 40 mg PO QHS #30 tablet 12/23/17 Unknown Rx Ipratropium/Albuterol Sulfate 1 ampul IH Q6HRT #60 ampul.neb 12/23/17 Unknown Rx [DUONEB *Not for PRN Use*] Nebulizer [Aeroneb Go Nebulizer] 1 each MC BID #1 each 12/23/17 Unknown Rx Prednisone [predniSONE 10 mg 10 mg PO .TAPER #1 tab.ds.pk 10/03/19 Unknown Rx (6-Day Pack, 21 Tabs)] Allergies Allergy/AdvReac Type Severity Reaction Status Date / Time No Known Allergies Allergy Verified 06/04/19 14:15 ED Review of Systems ROS: Stated complaint: DIFFICULTY IN BREATHING Other details as noted in HPI Comment: All other systems reviewed and negative ED Past Medical Hx - Past Medical History Hx CVA: No Hx Diabetes: Yes (pre diabetes) Hx Pulmonary Embolism: Yes Hx COPD: Yes Additional medical history: Chronic neck pain - Surgical History Additional Surgical History: hysterectomy, Bautista. shoulder surgeries, Left hand surgery - Social History Smoking Status: Current Some Day Smoker Substance Use Type: None - Medications Home Medications: Home Medications Medication Instructions Recorded Confirmed Last Taken Type Remeron 15 mg PO HS 12/21/17 05/24/18 12/19/17 21:00 History AtorvaSTATin [Lipitor] 40 mg PO QHS #30 tablet 12/23/17 05/24/18 Unknown Rx Ipratropium/Albuterol Sulfate 1 ampul IH Q6HRT #60 ampul.neb 12/23/17 05/24/18 Unknown Rx [DUONEB *Not for PRN Use*] Nebulizer [Aeroneb Go Nebulizer] 1 each MC BID #1 each 12/23/17 05/24/18 Unknown Rx Prednisone [predniSONE 10 mg 10 mg PO .TAPER #1 tab.ds.pk 10/03/19 Unknown Rx (6-Day Pack, 21 Tabs)] ED Physical Exam - General Limitations: No Limitations - Other Other exam information: General: No acute distress Head: Atraumatic Eyes: normal appearance ENT: Moist mucous membranes Neck: Normal appearance, no midline tenderness, tenderness along the left-sided trapezius muscle down to the posterior and lateral Chest: Bilateral expiratory wheezing with fair air movement CV: Regular rate and rhythm Abdomen: Soft, normal bowel sounds, nontender, nondistended, no rebound or guar ding Back: Normal inspection Extremity: Normal inspection, full range of motion, no calf tenderness or leg edema Neuro: Alert O x 3, no facial asymmetry, speech clear, no gross motor sensory deficit Psych: Appropriate behavior Skin: No rash ED Course Vital Signs 10/02/19 10/02/19 10/02/19 21:17 21:30 22:00 Temperature 97.8 F Pulse Rate 88 81 77 Pulse Rate [ Bilateral] Respiratory 20 22 25 H Rate Respiratory Rate [Bilateral ] Blood Pressure 117/61 125/55 125/55 O2 Sat by Pulse 98 100 99 Oximetry 10/02/19 10/02/19 10/02/19 22:06 22:16 22:30 Temperature Pulse Rate 78 93 H Pulse Rate [ 121 H Bilateral] Respiratory 22 28 H Rate Respiratory 19 Rate [Bilateral ] Blood Pressure 113/52 119/62 O2 Sat by Pulse 100 100 Oximetry 10/02/19 10/02/19 22:46 23:00 Temperature Pulse Rate 82 90 Pulse Rate [ Bilateral] Respiratory 21 22 Rate Respiratory Rate [Bilateral ] Blood Pressure 119/62 117/45 O2 Sat by Pulse 99 99 Oximetry ED Medical Decision Making - Lab Data Result diagrams: 10/02/19 21:49 10/02/19 21:49 Lab Results 10/02/19 10/02/19 10/02/19 Range/Units 21:49 21:49 21:49 WBC 12.1 H (4.5-11.0) K/mm3 RBC 4.54 (3.65-5.03) M/mm3 Hgb 13.5 (10.1-14.3) gm/dl Hct 41.5 (30.3-42.9) % MCV 91 (79-97) fl MCH 30 (28-32) pg MCHC 33 (30-34) % RDW 14.6 (13.2-15.2) % Plt Count 263 (140-440) K/mm3 Lymph % (Auto) 17.8 (13.4-35.0) % [place] % (Auto) 4.1 (0.0-7.3) % Eos % (Auto) 1.1 (0.0-4.3) % Baso % (Auto) 0.2 (0.0-1.8) % Lymph # 2.1 (1.2-5.4) K/mm3 [place] # 0.5 (0.0-0.8) K/mm3 Eos # 0.1 (0.0-0.4) K/mm3 Baso # 0.0 (0.0-0.1) K/mm3 Seg Neutrophils % 76.8 H (40.0-70.0) % Seg Neutrophils # 9.3 H (1.8-7.7) K/mm3 PT 12.0 L (12.2-14.9) Sec. INR 0.90 (0.87-1.13) Sodium 138 (137-145) mmol/L Potassium 3.6 (3.6-5.0) mmol/L Chloride 103.2 (98-107) mmol/L Carbon Dioxide 25 (22-30) mmol/L Anion Gap 13 mmol/L BUN 9 (7-17) mg/dL Creatinine 0.6 L (0.7-1.2) mg/dL Estimated GFR > 60 ml/min BUN/Creatinine Ratio 15 % Glucose 116 H (65-100) mg/dL Calcium 9.0 (8.4-10.2) mg/dL - Radiology Data Radiology results: report reviewed CHEST 1 VIEW INDICATION: sob, wheeze. COMPARISON: 06/10/2019 FINDINGS: Support devices: None. Heart: Normal. Lungs/Pleura: No consolidation or effusion. No pneumothorax. Reticular markings within the lower lungs may be chronic. IMPRESSION: 1. Mild reticular markings in the lower lungs may be chronic, it would be difficult to exclude mild lower airways disease. No consolidation/pneumonia. - Medical Decision Making pt feeling much better with ed treatment and tx in route to hosptial lungs ctab no pneumonia on cxr pt feels well enough to go home with meds - Differential Diagnosis Asthma, COPD, pneumonia Critical Care Time: No Critical care attestation.: If time is entered above; I have spent that time in minutes in the direct care of this critically ill patient, excluding procedure time. ED Disposition Clinical Impression: COPD with exacerbation Disposition: DC-01 TO HOME OR SELFCARE Is pt being admited?: No Does the pt Need Aspirin: No Condition: Stable Instructions: Chronic Obstructive Pulmonary Disease (ED) Additional Instructions: Take the medication as prescribed. Follow-up with your doctor or doctor/clinic provided. Return if symptoms worsen as indicated by your discharge instr uctions. Prescriptions: Prednisone [predniSONE 10 mg (6-Day Pack, 21 Tabs)] 10 mg PO .TAPER #1 tab.ds.pk Referrals: FERNANDA OGDEN [Other] - 3-5 Days Time of Disposition: 00:28
--- NOTE | 2019-10-02 21:54 | XRay Report ---
CHEST 1 VIEW INDICATION: sob, wheeze. COMPARISON: 06/10/2019 FINDINGS: Support devices: None. Heart: Normal. Lungs/Pleura: No consolidation or effusion. No pneumothorax. Reticular markings within the lower lung s may be chronic. IMPRESSION: 1. Mild reticular markings in the lower lungs may be chronic, it would be difficult to exclude mild l ower airways disease. No consolidation/pneumonia. Signer Name: Chun Camilo MD Signed: 10/02/2019 9:49 PM Workstation Name: [id number]
[2019-10-02 22:06] LABS: Basophils % (Auto) 0.2 % (0.0-1.8); Eosinophils # (Auto) 0.1 K/mm3 (0.0-0.4); Eosinophils % (Auto) 1.1 % (0.0-4.3); Hematocrit 41.5 % (30.3-42.9); Hemoglobin 13.5 gm/dl (10.1-14.3); Lymphocytes # (Auto) 2.1 K/mm3 (1.2-5.4); Lymphocytes % (Auto) 17.8 % (13.4-35.0); Mean Corpuscular HGB Conc 33 % (30-34); Mean Corpuscular Volume 91 fl (79-97); Monocytes # (Auto) 0.5 K/mm3 (0.0-0.8); Monocytes % (Auto) 4.1 % (0.0-7.3); Platelet Count 263 K/mm3 (140-440); Red Blood Count 4.54 M/mm3 (3.65-5.03); Red Cell Distribution Width 14.6 % (13.2-15.2)
[2019-10-02 22:14] LABS: INR 0.9 (0.87-1.13)
[2019-10-02 22:22] LABS: BUN/Creatinine Ratio 15; Blood Urea Nitrogen 9 mg/dL (7-17); Hemolysis Index 3
[2019-10-04 12:54] VITALS: BP 103/53
== END 2019-10-03 01:20 | disposition home or self-care (01) ==
LOC: ED 20:53
DX: J44.1 Chronic obstructive pulmonary disease with (acute) exacerbation (principal); F17.200 Nicotine dependence, unspecified, uncomplicated; E11.9 Type 2 diabetes mellitus without complications; Z90.710 Acquired absence of both cervix and uterus; Z79.899 Other long term (current) drug therapy; Z98.890 Other specified postprocedural states
CPT/HCPCS: 36415; 71045; 80048; 85025; 85610; 93005; 94640; 96374; 96375; 99284; J1885; 94644

== ENCOUNTER 2020-08-06 14:16 | Observation (INO) | payer MEDICARE ==
[2020-08-06] MEDS ORDERED: ONDANSETRON 4 MG/2 ML INJ IV ONE (15:01)
[2020-08-06] MEDS ORDERED: MORPHINE 4 MG/1 ML INJ IV ONE (15:01)
--- NOTE | 2020-08-06 15:04 | Emergency Department Report ---
ED General Adult HPI - General Chief complaint: Pain General Stated complaint: ANXIETY Time Seen by Provider: 08/06/20 14:45 Source: patient, EMS Mode of arrival: Stretcher Limitations: No Limitations - History of Present Illness Initial comments: Patient is 69 years old female with history of COPD, hypertension, diabetes and pulmonary embolism. Patient brought to the emergency room via EMS for evaluation of dizziness and generalized body pain. Patient stated that her symptoms started last night. Patient is complaining of headache bilateral upper extremity pain. Patient stated that she is not feeling well. Patient denied any fever or chills. No chest pain. No abdominal pain, nausea or vomiting. No focal weakness, numbness or tingling sensation. No bowel or bladder incontinence. No slurred speech. Stroke scale is 0. - Related Data Previous Rx's Medication Instructions Recorded Last Taken Type AtorvaSTATin [Lipitor] 40 mg PO QHS #30 tablet 12/23/17 Unknown Rx Allergies Allergy/AdvReac Type Severity Reaction Status Date / Time No Known Allergies Allergy Verified 06/04/19 14:15 ED Review of Systems ROS: Stated complaint: ANXIETY Other details as noted in HPI Comment: All other systems reviewed and negative Constitutional: denies: chills, fever Respiratory: shortness of breath, SOB with exertion, SOB at rest, wheezing. den ies: cough, orthopnea Cardiovascular: denies: chest pain, palpitations Gastrointestinal: denies: abdominal pain, nausea, vomiting, diarrhea, constipat ion, hematemesis, melena, hematochezia Musculoskeletal: arthralgia, myalgia. denies: back pain Neurological: headache, vertigo. denies: weakness, numbness, paresthesias, confusion, abnormal gait ED Past Medical Hx - Past Medical History Hx Hypertension: Yes Hx CVA: No Hx Diabetes: Yes (pre diabetes) Hx Pulmonary Embolism: Yes Hx COPD: Yes Additional medical history: Chronic neck pain - Surgical History Additional Surgical History: hysterectomy, Bautista. shoulder surgeries, Left hand surgery - Social History Smoking Status: Current Every Day Smoker - Medications Home Medications: Home Medications Medication Instructions Recorded Confirmed Last Taken Type AtorvaSTATin [Lipitor] 40 mg PO QHS #30 tablet 12/23/17 05/24/18 Unknown Rx ED Physical Exam - General Limitations: No Limitations General appearance: alert, in no apparent distress - Head Head exam: Present: atraumatic, normocephalic, normal inspection - Eye Eye exam: Present: normal appearance, PERRL - ENT ENT exam: Present: normal exam, normal orophraynx, mucous membranes moist - Neck Neck exam: Present: normal inspection, full ROM. Absent: tenderness, meningismus - Respiratory Respiratory exam: Present: normal lung sounds bilaterally - Cardiovascular Cardiovascular Exam: Present: regular rate, normal rhythm, normal heart sounds - GI/Abdominal GI/Abdominal exam: Present: soft, normal bowel sounds. Absent: distended, tenderness, guarding, rebound, rigid, organomegaly, mass, bruit, pulsatile mass, hernia - Extremities Exam Extremities exam: Present: normal inspection, full ROM, normal capillary refill. Absent: tenderness - Back Exam Back exam: Present: normal inspection, full ROM. Absent: CVA tenderness (R), CVA tenderness (L) - Neurological Exam Neurological exam: Present: alert, oriented X3, CN II-XII intact - Psychiatric Psychiatric exam: Present: normal mood - Skin Skin exam: Present: warm, intact, normal color ED Course Vital Signs 08/06/20 08/06/20 08/06/20 14:28 14:31 15:01 Temperature Pulse Rate 79 97 H 91 H Respiratory 20 22 28 H Rate Blood Pressure 117/55 117/55 Blood Pressure 117/55 [Left] O2 Sat by Pulse 97 97 99 Oximetry 08/06/20 08/06/20 08/06/20 15:31 16:01 16:31 Temperature Pulse Rate 92 H 92 H 93 H Respiratory 24 26 H 22 Rate Blood Pressure 111/54 118/65 118/65 Blood Pressure [Left] O2 Sat by Pulse 98 99 100 Oximetry 08/06/20 08/06/20 08/06/20 17:01 17:32 18:01 Temperature Pulse Rate 86 Respiratory 20 Rate Blood Pressure 118/65 117/55 118/65 Blood Pressure [Left] O2 Sat by Pulse 99 100 100 Oximetry 08/06/20 08/06/20 08/06/20 18:23 18:31 19:01 Temperature Pulse Rate Respiratory Rate Blood Pressure 118/65 118/65 122/61 Blood Pressure [Left] O2 Sat by Pulse 100 99 100 Oximetry 08/06/20 08/06/20 08/06/20 19:14 19:31 20:01 Temperature Pulse Rate 84 82 Respiratory 16 18 Rate Blood Pressure 124/47 136/37 Blood Pressure 124/47 [Left] O2 Sat by Pulse 98 99 99 Oximetry 08/06/20 08/06/20 08/06/20 20:31 21:01 21:31 Temperature Pulse Rate 75 78 95 H Respiratory 18 19 19 Rate Blood Pressure 120/63 124/58 130/50 Blood Pressure [Left] O2 Sat by Pulse 100 100 98 Oximetry 08/06/20 08/06/20 08/06/20 22:01 22:31 23:01 Temperature Pulse Rate 87 71 73 Respiratory 24 18 17 Rate Blood Pressure 150/61 126/60 134/59 Blood Pressure [Left] O2 Sat by Pulse 99 100 100 Oximetry 08/06/20 08/06/20 08/07/20 23:31 23:34 00:01 Temperature 98.4 F Pulse Rate 87 88 Respiratory 22 23 Rate Blood Pressure 117/69 122/60 Blood Pressure [Left] O2 Sat by Pulse 99 100 Oximetry 08/07/20 08/07/20 08/07/20 00:31 01:01 01:31 Temperature Pulse Rate 74 71 80 Respiratory 19 17 20 Rate Blood Pressure 124/52 119/51 122/51 Blood Pressure [Left] O2 Sat by Pulse 100 100 100 Oximetry 08/07/20 08/07/20 08/07/20 02:01 02:31 03:00 Temperature Pulse Rate 75 75 Respiratory 16 17 Rate Blood Pressure 114/54 113/54 120/57 Blood Pressure [Left] O2 Sat by Pulse 100 100 Oximetry 08/07/20 08/07/20 08/07/20 03:34 04:01 04:31 Temperature Pulse Rate 84 72 Respiratory 28 H 17 Rate Blood Pressure 120/57 120/57 111/55 Blood Pressure [Left] O2 Sat by Pulse 98 98 100 Oximetry 08/07/20 08/07/20 08/07/20 05:01 05:31 06:01 Temperature Pulse Rate 71 71 71 Respiratory 16 17 17 Rate Blood Pressure 111/55 115/58 115/58 Blood Pressure [Left] O2 Sat by Pulse 100 100 100 Oximetry 08/07/20 08/07/20 08/07/20 06:30 07:01 07:57 Temperature Pulse Rate 70 75 79 Respiratory 19 19 23 Rate Blood Pressure 110/52 110/52 Blood Pressure 115/47 [Left] O2 Sat by Pulse 100 99 100 Oximetry ED Medical Decision Making - Lab Data Result diagrams: 08/07/20 02:53 08/07/20 02:53 - EKG Data -: EKG Interpreted by Me EKG shows normal: sinus rhythm Rate: normal - EKG Data Interpretation: no acute changes - Radiology Data Radiology results: report reviewed - Medical Decision Making Patient is 69 years old female with history of COPD, hypertension, diabetes and pulmonary embolism. Patient brought to the emergency room via EMS for evaluation of dizziness and generalized body pain. Patient stated that her symptoms started last night. Patient is complaining of headache bilateral upper extremity pain. Patient stated that she is not feeling well. Patient denied any fever or chills. No chest pain. No abdominal pain, nausea or vomiting. No focal weakness, numbness or tingling sensation. No bowel or bladder incontinence. No slurred speech. Stroke scale is 0. Patient received normal saline, morphine and Zofran. Patient stated that pain is improved but she felt really dizzy. Labs reviewed and is unremarkable except for trace ketones in the urine indicating possible dehydration. White blood cells is 13,000 however patient is taking prednisone for COPD. I discussed the patient with Dr. Ibrahim, he agreed to admit the patient to medical service for further management. Critical care attestation.: If time is entered above; I have spent that time in minutes in the direct care of this critically ill patient, excluding procedure time. ED Disposition Clinical Impression: Generalized body aches, Dehydration Syncope Qualifiers: Syncope type: unspecified Qualified Code(s): R55 - Syncope and collapse Disposition: OP ADMIT IP TO THIS HOSP Is pt being admited?: Yes Condition: Stable
--- NOTE | 2020-08-06 15:28 | XRay Report ---
CHEST 1 VIEW 08/06/2020 3:21 PM INDICATION / CLINICAL INFORMATION: Dyspnea. COMPARISON: 03/30/2020. FINDINGS: SUPPORT DEVICES: None. HEART / MEDIASTINUM: No significant abnormality. LUNGS / PLEURA: No significant pulmonary or pleural abnormality. No pneumothorax. ADDITIONAL FINDINGS: No significant additional findings. IMPRESSION: No acute abnormality. Signer Name: Hema Gunter MD Signed: 08/06/2020 3:23 PM Workstation Name: [id number]
[2020-08-06 15:54] LABS: Basophils % (Auto) 0.2 % (0.0-1.8); Eosinophils # (Auto) 0.1 K/mm3 (0.0-0.4); Hematocrit 38.6 % (30.3-42.9); Hemoglobin 13.2 gm/dl (10.1-14.3); Lymphocytes % (Auto) 22.8 % (13.4-35.0); Mean Corpuscular HGB Conc 34 % (30-34); Mean Corpuscular Volume 88 fl (79-97); Monocytes # (Auto) 0.6 K/mm3 (0.0-0.8); Monocytes % (Auto) 4.4 % (0.0-7.3); Platelet Count 303 K/mm3 (140-440); Red Blood Count 4.37 M/mm3 (3.65-5.03); Red Cell Distribution Width 15.8 % (13.2-15.2)
[2020-08-06 16:20] LABS: Blood Urea Nitrogen 8 mg/dL (7-17); Calcium 9.1 mg/dL (8.4-10.2); Hemolysis Index 52
[2020-08-06 16:23] LABS: Alanine Aminotransferase 18 units/L (7-56); Albumin 4.5 g/dL (3.9-5); INR 0.96 (0.87-1.13)
[2020-08-06 16:24] LABS: Partial Thromboplastin Time 25.2 Sec. (24.2-36.6)
[2020-08-06 16:31] LABS: Bilirubin,Direct < 0.2 mg/dL (0-0.2)
[2020-08-06 16:32] LABS: BUN/Creatinine Ratio 13
[2020-08-06 17:49] LABS: Bacteria,Urine 1+ /HPF (Negative); Bilirubin,Urine NEG (Negative); Blood,Urine SM (Negative); Color,Urine Yellow (Yellow); Mucus,Urine 1+ /HPF; Protein,Urine <15 mg/dL mg/dL (Negative); Urobilinogen,Urine < 2.0 mg/dL (<2.0)
[2020-08-06] MEDS ORDERED: SODIUM CHLORIDE 0.9% 1000 ML 1,000 ML IV ONE ×2 (18:24→19:23)
[2020-08-06] MEDS ORDERED: ACETAMINOPHEN 325 MG TAB PO PRN (22:30)
[2020-08-06] MEDS ORDERED: MORPHINE 2 MG/1 ML INJ IV PRN (22:30)
[2020-08-06] MEDS ORDERED: METOCLOPRAMIDE 10 MG/2 ML INJ IV PRN (22:30)
[2020-08-06] MEDS ORDERED: ONDANSETRON 4 MG/2 ML INJ IV PRN (22:30)
[2020-08-06] MEDS ORDERED: oxyCODONE /ACETAMINOPHEN 5-325MG TAB PO PRN (22:30)
--- NOTE | 2020-08-06 22:37 | History and Physical Report ---
History of Present Illness Date of examination: 08/06/20 Date of admission: 08/06/20 19:22 Chief complaint: Apparently passed out this a.m. History of present illness: 69-year-old female with history of COPD GERD hyperlipidemia brought in by EMS for dizziness and apparently passing out. Also generalized body pains. Briefly. Patient is also complaining of bilateral headache. Patient states that she is not feeling well. No abdominal pain no nausea no vomiting. No chest pain. No diaphoresis. Past History Past Medical History: COPD, GERD, hyperlipidemia Past Surgical History: No surgical history Social history: lives with family, full code Family history: hypertension Medications and Allergies Allergies Allergy/AdvReac Type Severity Reaction Status Date / Time No Known Allergies Allergy Verified 06/04/19 14:15 Home Medications Medication Instructions Recorded Confirmed Last Taken Type AtorvaSTATin [Lipitor] 40 mg PO QHS #30 tablet 12/23/17 05/24/18 Unknown Rx Review of Systems All systems: negative Exam - Constitutional Vitals: Temp Pulse Resp BP Pulse Ox 84 16 124/47 98 08/06/20 19:14 08/06/20 19:14 08/06/20 19:14 08/06/20 19:14 General appearance: Present: no acute distress, well-nourished - EENT Eyes: Present: PERRL ENT: hearing intact, clear oral mucosa - Neck Neck: Present: supple, normal ROM - Respiratory Respiratory effort: normal Respiratory: bilateral: CTA - Cardiovascular Rhythm: regular Heart Sounds: Present: S1 & S2. Absent: rub, click - Extremities Extremities: no ischemia, pulses intact (78), pulses symmetrical, No edema Peripheral Pulses: within normal limits - Abdominal General gastrointestinal: Present: soft, non-tender, non-distended, normal bowel sounds Female genitourinary: Present: normal - Integumentary Integumentary: Present: clear, warm, dry - Musculoskeletal Musculoskeletal: gait normal, strength equal bilaterally - Psychiatric Psychiatric: appropriate mood/affect, intact judgment & insight - Neurologic Neurologic: CNII-XII intact, moves all extremities - Allied Health Allied health notes reviewed: nursing, case management HEART Score - HEART Score History: Slightly suspicious Age: > 65 Risk factors: 1-2 risk factors Troponin: Troponin T < 0.010 ng/mL (0.00-0.029) 08/06/20 17:42 Troponin: < normal limit Results - Labs CBC & Chem 7: 08/07/20 02:53 08/07/20 02:53 Labs: Laboratory Last Values WBC 13.0 K/mm3 (4.5-11.0) H 08/06/20 15:36 RBC 4.37 M/mm3 (3.65-5.03) 08/06/20 15:36 Hgb 13.2 gm/dl (10.1-14.3) 08/06/20 15:36 Hct 38.6 % (30.3-42.9) 08/06/20 15:36 MCV 88 fl (79-97) 08/06/20 15:36 MCH 30 pg (28-32) 08/06/20 15:36 MCHC 34 % (30-34) 08/06/20 15:36 RDW 15.8 % (13.2-15.2) H 08/06/20 15:36 Plt Count 303 K/mm3 (140-440) 08/06/20 15:36 Lymph % (Auto) 22.8 % (13.4-35.0) 08/06/20 15:36 [place] % (Auto) 4.4 % (0.0-7.3) 08/06/20 15:36 Eos % (Auto) 1.0 % (0.0-4.3) 08/06/20 15:36 Baso % (Auto) 0.2 % (0.0-1.8) 08/06/20 15:36 Lymph # (Auto) 3.0 K/mm3 (1.2-5.4) 08/06/20 15:36 [place] # (Auto) 0.6 K/mm3 (0.0-0.8) 08/06/20 15:36 Eos # (Auto) 0.1 K/mm3 (0.0-0.4) 08/06/20 15:36 Baso # (Auto) 0.0 K/mm3 (0.0-0.1) 08/06/20 15:36 Seg Neutrophils % 71.6 % (40.0-70.0) H 08/06/20 15:36 Seg Neutrophils # 9.3 K/mm3 (1.8-7.7) H 08/06/20 15:36 PT 12.7 Sec. (12.2-14.9) 08/06/20 15:36 INR 0.96 (0.87-1.13) 08/06/20 15:36 APTT 25.2 Sec. (24.2-36.6) 08/06/20 15:36 Sodium 141 mmol/L (137-145) 08/06/20 15:36 Potassium 4.6 mmol/L (3.6-5.0) 08/06/20 15:36 Chloride 104.9 mmol/L (98-107) 08/06/20 15:36 Carbon Dioxide 22 mmol/L (22-30) 08/06/20 15:36 Anion Gap 19 mmol/L 08/06/20 15:36 BUN 8 mg/dL (7-17) 08/06/20 15:36 Creatinine 0.6 mg/dL (0.6-1.2) 08/06/20 15:36 Estimated GFR > 60 ml/min 08/06/20 15:36 BUN/Creatinine Ratio 13 % 08/06/20 15:36 Glucose 87 mg/dL (65-100) 08/06/20 15:36 Lactic Acid 0.90 mmol/L (0.7-2.0) 08/06/20 15:36 Calcium 9.1 mg/dL (8.4-10.2) 08/06/20 15:36 Magnesium 2.20 mg/dL (1.7-2.3) 08/06/20 15:36 Total Bilirubin 0.30 mg/dL (0.1-1.2) 08/06/20 15:36 Direct Bilirubin < 0.2 mg/dL (0-0.2) 08/06/20 15:36 Indirect Bilirubin 0.1 mg/dL 08/06/20 15:36 AST 21 units/L (5-40) 08/06/20 15:36 ALT 18 units/L (7-56) 08/06/20 15:36 Alkaline Phosphatase 67 units/L (35-129) 08/06/20 15:36 Troponin T < 0.010 ng/mL (0.00-0.029) 08/06/20 17:42 NT-Pro-B Natriuret Pep 22.99 pg/mL (0-900) 08/06/20 15:36 Total Protein 7.4 g/dL (6.3-8.2) 08/06/20 15:36 Albumin 4.5 g/dL (3.9-5) 08/06/20 15:36 Albumin/Globulin Ratio 1.6 % 08/06/20 15:36 Urine Color Yellow (Yellow) 08/06/20 Unknown Urine Turbidity Slightly-cloudy (Clear) 08/06/20 Unknown Urine pH 6.0 (5.0-7.0) 08/06/20 Unknown Ur Specific [place] 1.018 (1.003-1.030) 08/06/20 Unknown Urine Protein <15 mg/dl mg/dL (Negative) 08/06/20 Unknown Urine Glucose (UA) Neg mg/dL (Negative) 08/06/20 Unknown Urine Ketones 20 mg/dL (Negative) 08/06/20 Unknown Urine Blood Sm (Negative) 08/06/20 Unknown Urine Nitrite Neg (Negative) 08/06/20 Unknown Urine Bilirubin Neg (Negative) 08/06/20 Unknown Urine Urobilinogen < 2.0 mg/dL (<2.0) 08/06/20 Unknown Ur Leukocyte Esterase Tr (Negative) 08/06/20 Unknown Urine WBC (Auto) 2.0 /HPF (0.0-6.0) 08/06/20 Unknown Urine RBC (Auto) 2.0 /HPF (0.0-6.0) 08/06/20 Unknown U Epithel Cells (Auto) 8.0 /HPF (0-13.0) 08/06/20 Unknown Urine Bacteria (Auto) 1+ /HPF (Negative) 08/06/20 Unknown Urine Mucus 1+ /HPF 08/06/20 Unknown Short CBC 08/06/20 08/07/20 Range/Units 15:36 02:53 WBC 13.0 H 10.2 (4.5-11.0) K/mm3 Hgb 13.2 11.9 (10.1-14.3) gm/dl Hct 38.6 35.6 (30.3-42.9) % Plt Count 303 260 (140-440) K/mm3 BMP 08/06/20 08/07/20 15:36 02:53 Sodium 141 142 Potassium 4.6 4.5 Chloride 104.9 107.9 H Carbon Dioxide 22 25 BUN 8 7 Creatinine 0.6 0.5 L Glucose 87 82 Calcium 9.1 8.4 Cardiac Enzymes 08/06/20 08/06/20 Range/Units 15:36 17:42 Troponin T < 0.010 < 0.010 (0.00-0.029) ng/mL Liver Function 08/06/20 08/07/20 Range/Units 15:36 02:53 Total Bilirubin 0.30 0.40 (0.1-1.2) mg/dL Direct Bilirubin < 0.2 (0-0.2) mg/dL AST 21 17 (5-40) units/L ALT 18 14 (7-56) units/L Alkaline Phosphatase 67 59 (35-129) units/L Albumin 4.5 3.9 (3.9-5) g/dL Urine 08/06/20 Range/Units Unknown Urine Color Yellow (Yellow) Urine pH 6.0 (5.0-7.0) Ur Specific [place] 1.018 (1.003-1.030) Urine Protein <15 mg/dl (Negative) mg/dL Urine Glucose (UA) Neg (Negative) mg/dL - Imaging and Cardiology EKG: report reviewed (Sinus rhythm no acute ST-T wave changes) Assessment and Plan Advance Directives: Yes (Full code) VTE prophylaxis?: Chemical Plan of care discussed with patient/family: Yes - Patient Problems (1) Syncope Current Visit: Yes Status: Acute Qualifiers: Syncope type: unspecified Qualified Code(s): R55 - Syncope and collapse Plan to address problem: Syncope work-up Probable discharge tomorrow Observation status Echo and carotid duplex scans pending (2) COPD (chronic obstructive pulmonary disease) Current Visit: Yes Status: Chronic Qualifiers: COPD type: unspecified COPD Qualified Code(s): J44.9 - Chronic obstructive pulmonary disease, unspecified Plan to address problem: No acute shortness of breath DuoNeb's as needed (3) Hyperlipidemia Current Visit: Yes Status: Chronic Qualifiers: Hyperlipidemia type: mixed hyperlipidemia Qualified Code(s): E78.2 - Mixed hyperlipidemia Plan to address problem: Statins (4) GERD (gastroesophageal reflux disease) Current Visit: Yes Status: Chronic Qualifiers: Esophagitis presence: without esophagitis Qualified Code(s): K21.9 - Gastro-esophageal reflux disease without esophagitis Plan to address problem: Continue PPIs (5) DVT prophylaxis Current Visit: Yes Status: Acute Plan to address problem: On heparin and GI prophylaxis
[2020-08-06] MEDS: FAMOTIDINE 20 MG/2 ML INJ IV SCH (23:00)
[2020-08-06] MEDS: SODIUM CHLORIDE 0.9% 1000 ML 1,000 ML IV SCH (23:06)
[2020-08-07 03:11] LABS: Basophils % (Auto) 0.4 % (0.0-1.8); Eosinophils # (Auto) 0.1 K/mm3 (0.0-0.4); Eosinophils % (Auto) 0.7 % (0.0-4.3); Hematocrit 35.6 % (30.3-42.9); Hemoglobin 11.9 gm/dl (10.1-14.3); Lymphocytes % (Auto) 29.6 % (13.4-35.0); Mean Corpuscular HGB Conc 33 % (30-34); Mean Corpuscular Volume 90 fl (79-97); Monocytes # (Auto) 0.7 K/mm3 (0.0-0.8); Monocytes % (Auto) 7.4 % (0.0-7.3); Platelet Count 260 K/mm3 (140-440); Red Blood Count 3.98 M/mm3 (3.65-5.03)
[2020-08-07 03:33] LABS: Alanine Aminotransferase 14 units/L (7-56); Albumin 3.9 g/dL (3.9-5); Blood Urea Nitrogen 7 mg/dL (7-17); Calcium 8.4 mg/dL (8.4-10.2); Hemolysis Index 2
[2020-08-07 03:36] LABS: BUN/Creatinine Ratio 14
[2020-08-07] MEDS: FAMOTIDINE 20 MG/2 ML INJ IV SCH (09:20)
--- NOTE | 2020-08-07 09:20 | Vascular Lab Report ---
DUPLEX DOPPLER ULTRASOUND CAROTID, BILATERAL INDICATION / CLINICAL INFORMATION: Syncope. COMPARISON: 11/15/2007 carotid duplex FINDINGS: RIGHT CAROTID: Tortuous ICA course. Moderate amount of atherosclerotic plaque at the carotid bulb. - PLAQUE ESTIMATE (%): < 50% - CCA velocity: 103 cm/sec. - ICA peak systolic velocity: 122 cm/sec. - ICA/CCA PSV Ratio: 1.2 Right Vertebral Artery: Antegrade flow. LEFT CAROTID: Tortuous ICA course. Mild amount of atherosclerotic plaque at the carotid bulb. - PLAQUE ESTIMATE (%): < 50% - CCA velocity: 106 cm/sec. - ICA peak systolic velocity: 119 cm/sec. - ICA/CCA PSV Ratio: 1.1 Left Vertebral Artery: Antegrade flow. IMPRESSION: 1. Right Internal Carotid Artery: Less than 50% diameter stenosis. 2. Left Internal Carotid Artery: Less than 50% diameter stenosis. 3. Additional findings as above. Velocity criteria are extrapolated from diameter data as defined by the Society of Radiologists in Ul trasound Consensus Conference, Radiology 2003; 229;340-346. NO STENOSIS (NORMAL) - Plaque = none; ICA PSV < 125 cm/sec; ICA/CCA PSV Ratio < 2.0 <50% STENOSIS - Plaque < 50%; ICA PSV < 125 cm/sec; ICA/CCA PSV Ratio < 2.0 50-69% STENOSIS - Plaque > 50%; ICA PSV = 125-230 cm/sec; ICA/CCA PSV Ratio = 2.0-4.0 >70% BUT <100% STENOSIS - Plaque > 50%; ICA PSV > 230 cm/sec; ICA/CCA PSV Ratio > 4.0 NEAR OCCLUSION - Plaque = visible lumen; ICA PSV = high/low/none; ICA/CCA PSV Ratio = variable TOTAL OCCLUSION - Plaque = no lumen; ICA PSV = none; ICA/CCA PSV Ratio = N/A Signer Name: Doyle Duron MD Signed: 08/07/2020 9:15 AM Workstation Name: [id number]
[2020-08-07] MEDS ORDERED: HEPARIN 5,000 UNIT/1 ML VIAL SUB-Q SCH (10:00)
[2020-08-07] MEDS: SODIUM CHLORIDE 0.9% 1000 ML 1,000 ML IV SCH (12:28)
[2020-08-07] MEDS ORDERED: FLU VACC QUAD 2020-2021 (6 months +)/PF 60 0.5 ML SYRINGE IM ONE (12:44)
[2020-08-07] MEDS ORDERED: ALPRAZolam 0.25 MG TAB PO PRN (15:15)
--- NOTE | 2020-08-07 15:15 | Cat Scan Report ---
CT BRAIN: 08/07/2020 INDICATION / CLINICAL INFORMATION: syncope. COMPARISON: None available. FINDINGS: BRAIN/INTRACRANIAL STRUCTURES: Unenhanced CT images of the brain demonstrate no evidence of acute int racranial abnormality. Ventricles and sulci are normal in size and shape for a patient of this age. There is no evidence of ischemic injury, hemorrhage, or mass. Chronic periventricular white matter hypoattenuation is present on the right side. There are no abnormal extra-axial fluid collections. EXTRACRANIAL STRUCTURES: Unremarkable. IMPRESSION: No acute abnormality. All CT scans at this location are performed using dose reduction to ALARA by means of automated expos ure control. Signer Name: David Parra MD Signed: 08/07/2020 3:11 PM Workstation Name: [id number]
[2020-08-07] MEDS ORDERED: NICOTINE 14 MG/24 HR PATCH TD SCH (16:00)
--- NOTE | 2020-08-07 16:33 | Discharge Summary ---
Providers - Providers Date of Admission: 08/06/20 19:22 Date of discharge: 08/07/20 Attending physician: SHAY ESPAÑA 08/07/20 10:44 Physical Therapy Evaluation and Treat [CONS] Routine Comment: Reason For Exam: Debility Hospitalization Condition: Stable Hospital course: 69-year-old female with history of COPD GERD hyperlipidemia brought in by EMS for dizziness and apparently passing out. She was evaluated by CT head which showed no acute process, 2D echo showed preserved EF. Orthostatic vitals obtained and patient did not have orthostatic hypotension. Patient was further evaluated by physical therapy and recommended home health. Patient was then discharged home in stable condition with outpatient follow-up. Disposition: [id number] HOME UNDER HOME [facility] Final Discharge Diagnosis (Prints w/discharge instructions): Syncope, likely vasovagal. COPD without exacerbation. Hyperlipidemia. GERD Time spent for discharge: 34 minutes Core Measure Documentation - Palliative Care Palliative Care/ Comfort Measures: Not Applicable - Core Measures Any of the following diagnoses?: none Exam - Physical Exam Narrative exam: GENERAL: well-developed and well-nourished elderly female lying on bed appeared to be in no discomfort. HEENT: Normocephalic. Atraumatic. No conjunctival congestion or icterus. Dustin harman has moist mucous membranes. NECK: Supple. Trachea midline. CHEST/LUNGS: Clear to auscultated bilaterally, breathing nonlabored. No wheezes crackles or rhonchi. HEART/CARDIOVASCULAR: Regular in rate and rhythm. S1 and S2 positive. ABDOMEN: Abdomen is soft, nontender. Patient has normal bowel sounds. SKIN: There is no rash. Warm and dry. NEURO: No focal motor deficit. Follows command. MUSCULOSKELETAL: No joint effusion or tenderness. EXTRIMITY: No edema, no cyanosis or clubbing. PSYCH: Cooperative. - Constitutional Vitals: Temp Pulse Resp BP Pulse Ox 98.4 F 78 21 115/47 100 08/06/20 23:34 08/07/20 14:54 08/07/20 09:00 08/07/20 07:57 08/07/20 07:57 Plan Activity: advance as tolerated Weight Bearing Status: Weight Bear as Tolerated Diet: low fat, low salt Follow up with: ADRIAN MICHAEL [Other] - 3-5 Days
[2020-08-07] MEDS ORDERED: ZOLPIDEM 5 MG TAB PO PRN (17:17)
[2020-08-07 17:22] VITALS: BP 123/55
== END 2020-08-07 18:33 | disposition home health service (06) ==
LOC: ED 14:16 → 4A 19:22
PROVIDERS: ADMIT Internal Medicine; ATTEND Internal Medicine
DX: R55 Syncope and collapse (principal); J44.9 Chronic obstructive pulmonary disease, unspecified; K21.9 Gastro-esophageal reflux disease without esophagitis; E78.2 Mixed hyperlipidemia; G89.29 Other chronic pain; M54.2 Cervicalgia; E86.0 Dehydration; F17.210 Nicotine dependence, cigarettes, uncomplicated; Z86.711 Personal history of pulmonary embolism; Z90.710 Acquired absence of both cervix and uterus; Z98.890 Other specified postprocedural states; Z79.899 Other long term (current) drug therapy
CPT/HCPCS: 36415; 70450; 71045; 80048; 80053; 80076; 81001; 82140; 83036; 83735; 83880; 84484; 85025; 85610; 85730; 93005; 93306; 93880; 96361; 96372; 96374; 96375; 96376; 97161; 99285; 99406; G0378; J1644; J2270; J2405; J7030; 90686

== ENCOUNTER 2020-11-11 13:49 | Emergency (ER) | payer MEDICARE ==
--- NOTE | 2020-11-11 15:10 | Event Note ---
ED Screening Note ED Screening Note: Patient is a 70-year-old female presents emergency room with complaints of lightheadedness and generalized weakness that began a couple days ago She states that she also feels like she has worsening shortness of breath, she has a history of COPD and wears home oxygen, she continues to be a current every day smoker half a pack a day She states that she also has a cough She denies any chest pain, vision changes, headache, numbness, unilateral weakness This initial assessment/diagnostic orders/clinical plan/treatment(s) is/are subject to change based on patients health status, clinical progression and re- assessment by fellow clinical providers in the ED. Further treatment and workup at subsequent clinical providers discretion. Patient/guardian urged not to elope from the ED as their condition may be serious if not clinically assessed and managed. Initial orders include: Labs, EKG, x-ray, CT, urine
[2020-11-11 15:15] VITALS: BP 127/59
[2020-11-11 15:42] LABS: Bilirubin,Urine NEG (Negative); Blood,Urine NEG (Negative); Color,Urine Yellow (Yellow); Mucus,Urine FEW /HPF; Protein,Urine <15 mg/dL mg/dL (Negative); Urobilinogen,Urine < 2.0 mg/dL (<2.0)
--- NOTE | 2020-11-11 16:00 | XRay Report ---
XR chest routine 2V INDICATION / CLINICAL INFORMATION: weakness. COMPARISON: 08/06/2020 FINDINGS: SUPPORT DEVICES: None. HEART /PULMONARY VASCULATURE: No significant abnormality. LUNGS / PLEURA: There is emphysema. No significant pulmonary or pleural abnormality. Pneumothorax. ADDITIONAL FINDINGS: No significant additional findings. IMPRESSION: 1. No acute findings. Signer Name: Liban Fine MD Signed: 11/11/2020 3:55 PM Workstation Name: [id number]
[2020-11-11 16:11] LABS: Alanine Aminotransferase 12 units/L (7-56); Albumin 4.5 g/dL (3.9-5); Blood Urea Nitrogen 9 mg/dL (7-17); Calcium 9.7 mg/dL (8.4-10.2); Hemolysis Index 43
[2020-11-11 16:13] LABS: BUN/Creatinine Ratio 15
[2020-11-11 16:14] LABS: Basophils % (Auto) 0.1 % (0.0-1.8); Eosinophils # (Auto) 0.1 K/mm3 (0.0-0.4); Eosinophils % (Auto) 1.3 % (0.0-4.3); Hematocrit 43.4 % (30.3-42.9); Hemoglobin 14.1 gm/dl (10.1-14.3); Lymphocytes % (Auto) 28.7 % (13.4-35.0); Mean Corpuscular HGB Conc 33 % (30-34); Mean Corpuscular Volume 93 fl (79-97); Monocytes # (Auto) 0.6 K/mm3 (0.0-0.8); Monocytes % (Auto) 6.2 % (0.0-7.3); Platelet Count 278 K/mm3 (140-440); Red Blood Count 4.65 M/mm3 (3.65-5.03); Red Cell Distribution Width 15.4 % (13.2-15.2)
--- NOTE | 2020-11-11 16:41 | Cat Scan Report ---
NONENHANCED CT SCAN OF THE HEAD: INDICATION / CLINICAL INFORMATION: 70 years Female; weakness, lightheaded. TECHNIQUE: Routine CT head without contrast. All CT scans at this location are performed using CT dos e reduction for ALARA by means of automated exposure control. COMPARISON: CT scan of the head from 08/07/2020 FINDINGS: BRAIN / INTRACRANIAL CONTENTS: No acute hemorrhage, mass effect, midline shift, hydrocephalus, or acu te, large territorial infarct. No chronic infarct or focal atrophy. Normal brain volume and ventricul ar/sulcal size for age. No significant white matter abnormality. CRANIOCERVICAL JUNCTION: No significant abnormality. ORBITS: No significant abnormality of visualized orbits. SINUSES / MASTOIDS: No significant abnormality of the visualized paranasal sinuses or mastoid air alex ls. ADDITIONAL FINDINGS: None. IMPRESSION: No acute focal parenchymal lesion Signer Name: Laura Benz MD Signed: 11/11/2020 4:36 PM Workstation Name: [id number]
--- NOTE | 2020-11-15 09:41 | Electrocardiograph Report ---
[facility] Test Date: 2020-11-11 Test Time: 15:50:07 Pat Name: ORLANDO ORELLANA Department: Room: Gender: F [employer] Services Professional: ЕКАТЕРИНА COMERB: 1950 Requested By: AMBERLY WALKER Order Number: [id number] Reading MD: Javan Singer Measurements Intervals [place] Rate: 72 P: 82 IA: 138 QRS: -5 QRSD: 74 T: 59 QT: 408 QTc: 447 Interpretive Statements Sinus rhythm No previous ECG available for comparison Electronically Signed On 11-15-2020 9:40:49 EDT by Javan Singer
== END 2020-11-11 19:00 | disposition left against medical advice (07) ==
LOC: ED 13:49
DX: R53.1 Weakness (principal); Z53.21 Procedure and treatment not carried out due to patient leaving prior to being seen by health care provider
CPT/HCPCS: 36415; 70450; 71046; 80053; 81001; 82550; 83735; 84484; 85025; 93005

== ENCOUNTER 2021-04-07 19:43 | Emergency (ER) | payer MEDICARE ==
[2021-04-07 20:26] LABS: Basophils % (Auto) 0.3 % (0.0-1.8); Eosinophils # (Auto) 0.2 K/mm3 (0.0-0.4); Eosinophils % (Auto) 2.2 % (0.0-4.3); Hematocrit 36.4 % (30.3-42.9); Hemoglobin 11.6 gm/dl (10.1-14.3); Lymphocytes # (Auto) 3.5 K/mm3 (1.2-5.4); Lymphocytes % (Auto) 30.8 % (13.4-35.0); Mean Corpuscular HGB Conc 32 % (30-34); Mean Corpuscular Volume 92 fl (79-97); Monocytes # (Auto) 0.7 K/mm3 (0.0-0.8); Monocytes % (Auto) 5.8 % (0.0-7.3); Platelet Count 278 K/mm3 (140-440); Red Blood Count 3.97 M/mm3 (3.65-5.03); Red Cell Distribution Width 14.9 % (13.2-15.2)
--- NOTE | 2021-04-07 20:26 | Emergency Department Report ---
- General Chief Complaint: Dyspnea/Respdistress Stated Complaint: COUGH, SHORTNESS OF BREATH Time Seen by Provider: 04/07/21 19:56 Source: EMS Mode of arrival: Stretcher Limitations: No Limitations - History of Present Illness Initial Comments: 70-year-old female, history of COPD (on 2 L O2 at home), presents to ED with cough and generalized weakness since yesterday. Patient denies any increase in oxygen requirement. Patient reported cough, generalized weakness. She reports she is fully vaccinated against COVID-19. She denies any loss of smell or taste. She denies any fever. MD Complaint: cough -: days(s) (2) Severity: mild Consistency: constant Improves With: nothing Worsens With: nothing Associated Symptoms: headache, cough, shortness of breath. denies: fever, nausea, vomiting, diarrhea Treatments Prior to Arrival: "cold medicine" - Related Data Home Medications Medication Instructions Recorded Confirmed Last Taken Benzonatate 200 mg PO TID 08/07/20 08/07/20 Unknown Citalopram 20 mg PO ONCE 08/07/20 08/07/20 08/06/20 Gabapentin 300 mg PO ONCE 08/07/20 08/07/20 08/06/20 Pantoprazole 40 mg PO ONCE 08/07/20 08/07/20 08/07/20 15:46 Rosuvastatin Calcium 20 mg PO ONCE 08/07/20 08/07/20 08/06/20 Sertraline 25 mg PO ONCE 08/07/20 08/07/20 Unknown traZODone 50 mg PO ONCE 08/07/20 08/07/20 08/06/20 Previous Rx's Medication Instructions Recorded Last Taken Type AtorvaSTATin [Lipitor] 40 mg PO QHS #30 tablet 12/23/17 08/06/20 Rx Zolpidem [Ambien] 5 mg PO QHS PRN #7 tablet 08/07/20 Unknown Rx Benzonatate [Tessalon Perles] 100 mg PO Q8HR PRN #20 capsule 04/07/21 Unknown Rx Allergies Allergy/AdvReac Type Severity Reaction Status Date / Time No Known Allergies Allergy Verified 06/04/19 14:15 ED Review of Systems ROS: Stated complaint: COUGH, SHORTNESS OF BREATH Other details as noted in HPI Comment: All other systems reviewed and negative Constitutional: weakness. denies: chills, fever Respiratory: cough, shortness of breath ED Past Medical Hx - Past Medical History Hx Hypertension: Yes Hx CVA: No Hx Diabetes: Yes (pre diabetes) Hx Pulmonary Embolism: Yes Hx COPD: Yes Additional medical history: Chronic neck pain - Surgical History Past Surgical History?: Yes Additional Surgical History: hysterectomy, Bautista. shoulder surgeries, Left hand surgery - Social History Smoking Status: Never Smoker Substance Use Type: None - Medications Home Medications: Home Medications Medication Instructions Recorded Confirmed Last Taken Type AtorvaSTATin [Lipitor] 40 mg PO QHS #30 tablet 12/23/17 08/07/20 08/06/20 Rx Benzonatate 200 mg PO TID 08/07/20 08/07/20 Unknown History Citalopram 20 mg PO ONCE 08/07/20 08/07/20 08/06/20 History Gabapentin 300 mg PO ONCE 08/07/20 08/07/20 08/06/20 History Pantoprazole 40 mg PO ONCE 08/07/20 08/07/20 08/07/20 15:46 History Rosuvastatin Calcium 20 mg PO ONCE 08/07/20 08/07/20 08/06/20 History Sertraline 25 mg PO ONCE 08/07/20 08/07/20 Unknown History Zolpidem [Ambien] 5 mg PO QHS PRN #7 tablet 08/07/20 Unknown Rx traZODone 50 mg PO ONCE 08/07/20 08/07/20 08/06/20 History Benzonatate [Tessalon Perles] 100 mg PO Q8HR PRN #20 capsule 04/07/21 Unknown Rx ED Physical Exam - General Limitations: No Limitations General appearance: alert, in no apparent distress - Head Head exam: Present: atraumatic, normocephalic - Eye Eye exam: Present: normal appearance, EOMI - ENT ENT exam: Present: mucous membranes moist - Neck Neck exam: Present: normal inspection - Respiratory Respiratory exam: Present: normal lung sounds bilaterally. Absent: respiratory distress - Cardiovascular Cardiovascular Exam: Present: regular rate, normal rhythm - GI/Abdominal GI/Abdominal exam: Present: soft. Absent: distended, tenderness - Extremities Exam Extremities exam: Present: normal inspection. Absent: pedal edema, calf tenderness - Neurological Exam Neurological exam: Present: alert, oriented X3 - Psychiatric Psychiatric exam: Present: normal affect, normal mood - Skin Skin exam: Present: warm, dry, intact, normal color ED Course Vital Signs 04/07/21 04/07/21 04/07/21 20:10 20:34 22:00 Temperature 98.7 F Pulse Rate 83 79 86 Respiratory 20 20 20 Rate Blood Pressure 122/52 131/62 124/88 [Left] O2 Sat by Pulse 98 99 100 Oximetry ED Medical Decision Making - Lab Data Result diagrams: 04/07/21 20:12 04/07/21 20:12 - Radiology Data Radiology results: report reviewed, image reviewed - Medical Decision Making 70-year-old female presents to ED with report of cough and generalized weakness. Patient is in no respiratory distress. O2 sats are normal on her usual 2 L O2 via nasal cannula. Chest x-ray is normal. Labs are unremarkable. Patient will be discharged home at this time. Outpatient follow-up advised, return precautions given. - Differential Diagnosis URI, pneumonia, electrolyte abnormality, dehydration Critical care attestation.: If time is entered above; I have spent that time in minutes in the direct care of this critically ill patient, excluding procedure time. ED Disposition Clinical Impression: URI (upper respiratory infection) Disposition: HOME / SELF CARE / HOMELESS Is pt being admited?: No Condition: Stable Instructions: Upper Respiratory Infection, Adult Prescriptions: Benzonatate [Tessalon Perles] 100 mg PO Q8HR PRN #20 capsule PRN Reason: Cough Referrals: PRIMARY CARE, [Primary Care Provider] - 3-5 Days [facility] [Provider Group] - 3-5 Days Time of Disposition: 21:07
--- NOTE | 2021-04-07 20:38 | XRay Report ---
XR chest 1V ap INDICATION / CLINICAL INFORMATION: cough. COMPARISON: 11/11/2020 FINDINGS: SUPPORT DEVICES: None. HEART /PULMONARY VASCULATURE: No significant abnormality. LUNGS / PLEURA: There is emphysema. No focal airspace consolidation. No sizable pleural effusion. No pneumothorax. ADDITIONAL FINDINGS: No significant additional findings. IMPRESSION: 1. No acute findings. Signer Name: Liban Fine MD Signed: 04/07/2021 8:33 PM Workstation Name: [id number]
[2021-04-07 20:50] LABS: Blood Urea Nitrogen 8 mg/dL (7-17); Calcium 8.5 mg/dL (8.4-10.2); Hemolysis Index 9
[2021-04-07 20:51] LABS: BUN/Creatinine Ratio 13
[2021-04-07 22:45] VITALS: BP 124/88
== END 2021-04-08 00:22 | disposition home or self-care (01) ==
LOC: ED 19:43
DX: J06.9 Acute upper respiratory infection, unspecified (principal); J44.9 Chronic obstructive pulmonary disease, unspecified; G89.29 Other chronic pain; I10 Essential (primary) hypertension; Z90.710 Acquired absence of both cervix and uterus; Z86.711 Personal history of pulmonary embolism; Z79.899 Other long term (current) drug therapy
CPT/HCPCS: 36415; 71045; 80048; 85025; 99284

== ENCOUNTER 2021-11-18 17:08 | Emergency (ER) | payer MEDICARE ==
[2021-11-18 17:26] VITALS: BP 120/80
[2021-11-19] MEDS ORDERED: ALPRAZolam 0.5 MG TAB PO ONE ×2 (00:32→03:15)
[2021-11-19 01:10] LABS: Basophils # (Auto) 0.1 K/mm3 (0.0-0.1); Basophils % (Auto) 0.8 % (0.0-1.8); Eosinophils # (Auto) 0.7 K/mm3 (0.0-0.4); Eosinophils % (Auto) 4.3 % (0.0-4.3); Hematocrit 38.9 % (30.3-42.9); Hemoglobin 12.3 gm/dl (10.1-14.3); Mean Corpuscular HGB Conc 32 % (30-34); Mean Corpuscular Volume 89 fl (79-97); Platelet Count 291 K/mm3 (140-440); Red Blood Count 4.36 M/mm3 (3.65-5.03); Red Cell Distribution Width 15.1 % (13.2-15.2)
--- NOTE | 2021-11-19 01:21 | XRay Report ---
CHEST 2 VIEWS INDICATION / CLINICAL INFORMATION: Dyspnea. COMPARISON: 04/07/2021 FINDINGS: SUPPORT DEVICES: None. HEART / MEDIASTINUM: No significant abnormality. LUNGS / PLEURA: No significant pulmonary or pleural abnormality. No pneumothorax. Flattening of the d iaphragms. ADDITIONAL FINDINGS: Chronic rib fractures of the left posterior ribs. IMPRESSION: 1. No acute cardiopulmonary abnormality. 2. Flattening of the diaphragms which can be seen with COPD, correlate clinically. Signer Name: Eliezer Eaton DO Signed: 11/19/2021 1:17 AM Workstation Name: [id number]
[2021-11-19 01:33] LABS: Alanine Aminotransferase 12 units/L (7-56); Albumin 4.2 g/dL (3.9-5); Blood Urea Nitrogen 10 mg/dL (7-17); Calcium 9.7 mg/dL (8.4-10.2); Hemolysis Index 2
[2021-11-19 01:34] LABS: BUN/Creatinine Ratio 14
[2021-11-19 01:36] LABS: INR 0.79 (0.87-1.13)
--- NOTE | 2021-11-19 04:29 | Emergency Department Report ---
ED General Adult HPI - General Chief complaint: Dyspnea/Respdistress Stated complaint: GEORGIANA Time Seen by Provider: 11/19/21 00:31 Source: EMS Mode of arrival: Stretcher Limitations: No Limitations - History of Present Illness Initial comments: Irvin is a 71-year-old [place] female smoker with COPD requiring home oxygen who presents to the emergency department due to her power going out and not been able to use her oxygen concentrator. States that she has been having some issues with shortness of breath off and on but thinks is more related to her a nxiety as she has been having some some issues at home lately with some appliances and climbing.. Over the past week she has had a few episodes of lightheadedness and dizziness as well as occasional shortness of breath would like that evaluated she reports no lower extremity swelling, no hemoptysis no hematemesis hematochezthu Is a 71-year-old -[place] female smoker with COPD requiring home oxygen department at the [facility] and her. The problem is since then been resolved she continues with occasional bouts of shortness of breath no chest pain palpitations -: Gradual Radiation: non-radiation Quality: aching, dull Improves with: none Worsens with: none Associated Symptoms: denies other symptoms, cough, malaise. denies: nausea/vo miting - Related Data Home Medications Medication Instructions Recorded Confirmed Last Taken Benzonatate 200 mg PO TID 08/07/20 08/07/20 Unknown Citalopram 20 mg PO ONCE 08/07/20 08/07/20 08/06/20 Gabapentin 300 mg PO ONCE 08/07/20 08/07/20 08/06/20 Pantoprazole 40 mg PO ONCE 08/07/20 08/07/20 08/07/20 15:46 Rosuvastatin Calcium 20 mg PO ONCE 08/07/20 08/07/20 08/06/20 Sertraline 25 mg PO ONCE 08/07/20 08/07/20 Unknown traZODone 50 mg PO ONCE 08/07/20 08/07/20 08/06/20 Previous Rx's Medication Instructions Recorded Last Taken Type AtorvaSTATin [Lipitor] 40 mg PO QHS #30 tablet 12/23/17 08/06/20 Rx Zolpidem [Ambien] 5 mg PO QHS PRN #7 tablet 08/07/20 Unknown Rx Benzonatate [Tessalon Perles] 100 mg PO Q8HR PRN #20 capsule 04/07/21 Unknown Rx Albuterol Mdi (or & Nicu Only) 2 puff IH QID PRN #1 inhalation 11/19/21 Unknown Rx [ProAir HFA Inhaler] Benzonatate [Tessalon Perles] 100 mg PO Q8HR #20 capsule 11/19/21 Unknown Rx Allergies Allergy/AdvReac Type Severity Reaction Status Date / Time No Known Allergies Allergy Verified 11/18/21 17:26 ED Review of Systems ROS: Stated complaint: [place] Other details as noted in HPI Comment: All other systems reviewed and negative ED Past Medical Hx - Past Medical History Hx Hypertension: Yes Hx CVA: No Hx Diabetes: Yes (pre diabetes) Hx Pulmonary Embolism: Yes Hx COPD: Yes Additional medical history: Chronic neck pain - Surgical History Additional Surgical History: hysterectomy, Bautista. shoulder surgeries, Left hand surgery - Social History Smoking Status: Never Smoker Substance Use Type: None - Medications Home Medications: Home Medications Medication Instructions Recorded Confirmed Last Taken Type AtorvaSTATin [Lipitor] 40 mg PO QHS #30 tablet 12/23/17 08/07/20 08/06/20 Rx Benzonatate 200 mg PO TID 08/07/20 08/07/20 Unknown History Citalopram 20 mg PO ONCE 08/07/20 08/07/20 08/06/20 History Gabapentin 300 mg PO ONCE 08/07/20 08/07/20 08/06/20 History Pantoprazole 40 mg PO ONCE 08/07/20 08/07/20 08/07/20 15:46 History Rosuvastatin Calcium 20 mg PO ONCE 08/07/20 08/07/20 08/06/20 History Sertraline 25 mg PO ONCE 08/07/20 08/07/20 Unknown History Zolpidem [Ambien] 5 mg PO QHS PRN #7 tablet 08/07/20 Unknown Rx traZODone 50 mg PO ONCE 08/07/20 08/07/20 08/06/20 History Benzonatate [Tessalon Perles] 100 mg PO Q8HR PRN #20 capsule 04/07/21 Unknown Rx Albuterol Mdi (or & Nicu Only) 2 puff IH QID PRN #1 inhalation 11/19/21 Unknown Rx [ProAir HFA Inhaler] Benzonatate [Tessalon Perles] 100 mg PO Q8HR #20 capsule 11/19/21 Unknown Rx ED Physical Exam - General Limitations: No Limitations General appearance: alert, in no apparent distress - Head Head exam: Present: atraumatic, normocephalic, normal inspection - Eye Eye exam: Present: normal appearance, PERRL, EOMI. Absent: conjunctival injection, periorbital swelling, periorbital tenderness Pupils: Present: normal accommodation. Absent: unequal - ENT ENT exam: Present: normal exam, normal orophraynx, mucous membranes moist, TM's normal bilaterally - Neck Neck exam: Present: normal inspection, full ROM - Respiratory Respiratory exam: Present: normal lung sounds bilaterally. Absent: respiratory distress, wheezes, stridor, chest wall tenderness, accessory muscle use - Cardiovascular Cardiovascular Exam: Present: regular rate, normal rhythm, normal heart sounds. Absent: bradycardia, tachycardia, systolic murmur, diastolic murmur, rubs, gall op - GI/Abdominal GI/Abdominal exam: Present: soft, normal bowel sounds - Extremities Exam Extremities exam: Present: normal inspection, normal capillary refill - Back Exam Back exam: Present: normal inspection, CVA tenderness (R), CVA tenderness (L). Absent: paraspinal tenderness, vertebral tenderness - Neurological Exam Neurological exam: Present: alert, oriented X3, CN II-XII intact, normal gait - Psychiatric Psychiatric exam: Present: normal affect, normal mood, anxious - Skin Skin exam: Present: warm, dry, intact, normal color. Absent: rash ED Course Vital Signs 11/18/21 17:20 Temperature 98.7 F Pulse Rate 106 H Respiratory 20 Rate Blood Pressure 120/80 [Right] O2 Sat by Pulse 94 Oximetry ED Medical Decision Making - Lab Data Result diagrams: 11/19/21 00:54 11/19/21 00:54 - Radiology Data Radiology results: report reviewed [facility] [address] [place] [address] XRay Report Signed Patient: ORLANDO ORELLANA MR#: [id number] : 1950 Acct:[id number] Age/Sex: 71 / F ADM Date: 11/18/21 Loc: ED Attending Dr: Ordering Physician: FELICITAS MENDEZ Date of Service: 11/19/21 Procedure(s): XR chest routine 2V Accession Number(s): [id number] cc: FELICITAS MENDEZ Fluoro Time In Minutes: CHEST 2 VIEWS INDICATION / CLINICAL INFORMATION: Dyspnea. COMPARISON: 04/07/2021 FINDINGS: SUPPORT DEVICES: None. HEART / MEDIASTINUM: No significant abnormality. LUNGS / PLEURA: No significant pulmonary or pleural abnormality. No pneumothorax. Flattening of the diaphragms. ADDITIONAL FINDINGS: Chronic rib fractures of the left posterior ribs. IMPRESSION: 1. No acute cardiopulmonary abnormality. 2. Flattening of the diaphragms which can be seen with COPD, correlate clinically. Signer Name: Eliezer Hall DO Signed: 11/19/2021 1:17 AM Workstation Name: [id number] Transcribed By: DIANA Dictated By: ELIEZER HALL DO Electronically Authenticated By: ELIEZER HALL DO Signed Date/Time: 11/19/21116 DD/ 5 TD/TT: - Medical Decision Making This patient presents with dyspnea most likely secondary to COPD. Differential diagnosis includes asthma, bronchitis, pleuritic pulmonary issue, viral syndrome. Presentation not consistent with acute cardiac etiologies to include ACS (heart score), CHF, pericardial effusion/tamponade. Presentation not consistent with acute respiratory etiologies to include acute pulmonary embolism ( PERC negative), pneumothorax, asthma, COPD exacerbation, infectious etiology such as pneumonia. The presentation also not consistent with known cardiopulmonary causes to include toxic syndrome, metabolic etiology such as acidemia or electrolyte derangements, sepsis, neurologic causes. Critical care attestation.: If time is entered above; I have spent that time in minutes in the direct care of this critically ill patient, excluding procedure time. ED Disposition Clinical Impression: Anxiety, COPD (chronic obstructive pulmonary disease) Disposition: 01 HOME / SELF CARE / HOMELESS Is pt being admited?: No Does the pt Need Aspirin: No Condition: Stable Instructions: Cough, Adult, [id number], Managing Anxiety, Adult, How to Use a Dry Powder Inhaler, COPD and Physical Activity, Chronic Obstructive Pulmonary Disease (ED) Prescriptions: Albuterol Mdi (or & Nicu Only) [ProAir HFA Inhaler] 2 puff IH QID PRN #1 inhalation PRN Reason: Shortness Of Breath Benzonatate [Tessalon Perles] 100 mg PO Q8HR #20 capsule Referrals: PRIMARY CARE, [Primary Care Provider] - 3-5 Days THERON BEEBE MD [Staff Physician] - 3-5 Days JAYSHREE BALBUENA MD [Staff Physician] - 3-5 Days
--- NOTE | 2021-11-19 12:21 | Electrocardiograph Report ---
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
== END 2021-11-19 09:20 | disposition home or self-care (01) ==
LOC: ED 17:08
DX: J44.9 Chronic obstructive pulmonary disease, unspecified (principal); F41.9 Anxiety disorder, unspecified; I10 Essential (primary) hypertension; E11.9 Type 2 diabetes mellitus without complications; I26.99 Other pulmonary embolism without acute cor pulmonale; G89.29 Other chronic pain; M54.2 Cervicalgia; Z90.710 Acquired absence of both cervix and uterus; Z98.890 Other specified postprocedural states
CPT/HCPCS: 36415; 71046; 80053; 84484; 85025; 85610; 93005; 99284